=== PATIENT | male | born 1975 | race African-American/Black ===

== ENCOUNTER 2016-05-23 19:22 | Emergency (ER) | payer OTHER ==
[~2016-05-23] VITALS: Ht 177.8 cm; Wt 72.6 kg
[~2016-05-23 19:22] MED LIST: PROZAC10 MG ORAL; UNOBMED; ZYPREXA2.5 MG ORAL
[2016-05-23 19:50] VITALS: BP 123/88
[2016-05-23 20:29] VITALS: BP 127/80
[2016-05-23 20:58] LABS: BASOPHILS % (AUTO) 0.9 % (0.0-2.0); EOSINOPHILS % (AUTO) 1.4 % (0.0-3.0); LYMPHOCYTES % (AUTO) 16.6 % (20.0-45.0); MEAN CORPUSCULAR HEMOGLOBIN 30.3 PG (27.0-31.0); MEAN CORPUSCULAR HGB CONC 32.8 G/DL (32.0-36.0); MEAN CORPUSCULAR VOLUME 92 FL (80-99); MEAN PLATELET VOLUME 7.9 FL (6.5-10.1); MONOCYTES % (AUTO) 7.6 % (1.0-10.0); NEUTROPHILS % (AUTO) 73.5 % (45.0-75.0); PLATELET COUNT 258 K/UL (150-450); RED BLOOD COUNT 5.56 M/UL (4.70-6.10); RED CELL DISTRIBUTION WIDTH 11.8 % (11.6-14.8); WHITE BLOOD COUNT 13.5 K/UL (4.8-10.8)
[2016-05-23 21:27] LABS: ACETAMINOPHEN < 10 ug/mL (10-30); ALANINE AMINOTRANSFERASE 10 U/L (3-41); ALBUMIN/GLOBULIN RATIO 1.2 (1.0-2.7); ALCOHOL < 10 mg/dL; ANION GAP 14 (5-15); ASPARTATE AMINO TRANSFERASE 15 U/L (5-40); CALCIUM 9.9 mg/dL (8.6-10.2); CARBON DIOXIDE 30 mEQ/L (20-30); CHLORIDE 95 mEQ/L (98-107); GLOMERULAR FILTRATION RATE > 60 mL/min (>60); HEMOLYSIS 5; POTASSIUM 4.2 mEQ/L (3.4-4.9); SODIUM 139 mEQ/L (135-145)
--- NOTE | 2016-05-23 21:36 | Emergency Room Report ---
History of Present Illness General Chief Complaint: Behavioral Complaint Source: Patient Present Illness HPI 40-year-old male presents emergency department complaining of hearing voices that are telling him to kill himself by taking a bunch of pills. Patient denies taking pills other than his prescribed medications as directed. Patient states he has a history of schizophrenia. takes Zyprexa and Prozac daily for management of symptoms. Patient states he sees a psychiatrist monthly for medication management. Patient states the last time he saw his doctor was one month ago and is due to see his doctor soon. Patient denies recent illness, nausea, vomiting, fevers or chills denies homicidal ideations. Pt denies intent to follow through with directions from "the voices." He does report increasing anxiousness and irritability in the bilateral lower extremities denies pain. Denies recent fall or trauma. Denies CP, Palpitations, LOC, AMS, dizziness, Changes in Vision, Sensation, paresthesias, or a sudden severe headache. Allergies: Coded Allergies: No Known Allergies (Unverified , 03/05/16) Patient History Past Medical History: see triage record, psych hx Past Surgical History: none Pertinent Family History: none Immunizations: UTD Reviewed Nursing Documentation: PMH: Agreed, PSxH: Agreed Nursing Documentation-PMH Past Medical History: No History, Except For History Of Psychiatric Problem: Yes - Schizo affect disorder, panic attack Review of Systems All Other Systems: negative except mentioned in HPI Physical Exam Vital Signs Date Time Temp Pulse Resp B/P Pulse Ox O2 Delivery O2 Flow Rate FiO2 05/23/16 19:37 98.4 105 14 123/88 100 Room Air Sp02 EP Interpretation: reviewed, abnormal - mild tachycardia at 105 BPM General Appearance: no apparent distress, alert, GCS 15, non-toxic Head: normocephalic, atraumatic Eyes: bilateral eye PERRL, bilateral eye normal inspection ENT: hearing grossly normal, normal pharynx, no angioedema, normal voice Neck: full range of motion, supple/symm/no masses Respiratory: chest non-tender, lungs clear, normal breath sounds, speaking full sentences Cardiovascular #1: regular rate, rhythm, no edema Musculoskeletal: back normal, gait/station normal, normal range of motion, non- tender, no calf tenderness, other - Pt. is NVI to LE's Neurologic: alert, oriented x3, responsive, motor strength/tone normal, sensory intact, cerebellar normal, normal gait, speech normal Psychiatric: judgement/insight normal, memory normal, mood/affect normal, no suicidal/homicidal ideation, other - Pt has auditory hallucinations. and appears with restless affect. Skin: normal color, no rash, warm/dry, well hydrated Lymphatic: no adenopathy Medical Decision Making PA Attestation Dr. Cain is my supervising Physician whom patient management has been discussed with. Diagnostic Impression: Primary Impression: Auditory hallucinations ER Course Pt. presents to the ED c/o during voices that are telling him to kill himself by taking a bunch of pills. Patient denies taking medications other than what he is prescribed and as directed. Patient reports history of schizophrenia. pt. takes Zyprexa and Prozac. Pt is hyperactive, and has a very anxious and restless affect. Ddx considered but are not limited to OD, SI/HI, psychosis, UTI, intoxication Vital signs: are WNL, pt. is afebrile H&PE are most consistent with behavioral/mental health issue, hx of schizophrenia with auditory hallucinations. ORDERS: -CBC: WNL /unremarkable -CMP: WNL /unremarkable -UA: negative for infection see results attached. -UDS: Negative -Psych panel ordered: see results attached - no acute intoxication. ED INTERVENTIONS: None required at this time. -- The patient does not have acute intoxication and denies intent to follow- through with directions from his auditory hallucinations. Discussed with patient that he would need to have medication adjustment and he to see a psychiatrist. Discussed with patient to follow up with [facility] mental health urgent care and gave him informational flyer along with address. Patient understands and verbally agrees to this treatment plan and states that he will go directly there upon discharge. Again patient denies SI at this time, and wants to be evaluated for his auditory hallucinations. Denies having a plan. DISCHARGE: At this time pt. is stable for d/c to home. Will provide printed patient care instructions, and any necessary prescriptions. Care plan and follow up instructions have been discussed with the patient prior to discharge. Labs Test 05/23/16 20:20 05/23/16 20:40 Urine Opiates Screen Negative (NEGATIVE) Urine Barbiturates Screen Negative (NEGATIVE) Phencyclidine (PCP) Screen Negative (NEGATIVE) Urine Amphetamines Screen Negative (NEGATIVE) Urine Benzodiazepines Screen Negative (NEGATIVE) Urine Cocaine Screen Negative (NEGATIVE) Urine Marijuana (THC) Screen Negative (NEGATIVE) White Blood Count 13.5 K/UL (4.8-10.8) Red Blood Count 5.56 M/UL (4.70-6.10) Hemoglobin 16.8 G/DL (14.2-18.0) Hematocrit 51.4 % (42.0-52.0) Mean Corpuscular Volume 92 FL (80-99) Mean Corpuscular Hemoglobin 30.3 PG (27.0-31.0) Mean Corpuscular Hemoglobin Concent 32.8 G/DL (32.0-36.0) Red Cell Distribution Width 11.8 % (11.6-14.8) Platelet Count 258 K/UL (150-450) Mean Platelet Volume 7.9 FL (6.5-10.1) Neutrophils (%) (Auto) 73.5 % (45.0-75.0) Lymphocytes (%) (Auto) 16.6 % (20.0-45.0) Monocytes (%) (Auto) 7.6 % (1.0-10.0) Eosinophils (%) (Auto) 1.4 % (0.0-3.0) Basophils (%) (Auto) 0.9 % (0.0-2.0) Sodium Level 139 mEQ/L (135-145) Potassium Level 4.2 mEQ/L (3.4-4.9) Chloride Level 95 mEQ/L (98-107) Carbon Dioxide Level 30 mEQ/L (20-30) Anion Gap 14 (5-15) Blood Urea Nitrogen 10 mg/dL (7-23) Creatinine 1.0 mg/dL (0.7-1.2) Estimat Glomerular Filtration Rate > 60 mL/min (>60) Glucose Level 117 mg/dL (74-106) Calcium Level 9.9 mg/dL (8.6-10.2) Total Bilirubin 0.2 mg/dL (0.0-1.2) Aspartate Amino Transf (AST/SGOT) 15 U/L (5-40) Alanine Aminotransferase (ALT/SGPT) 10 U/L (3-41) Alkaline Phosphatase 92 U/L (40-129) Total Protein 8.0 g/dL (6.6-8.7) Albumin 4.4 g/dL (3.5-5.2) Globulin 3.6 g/dL Albumin/Globulin Ratio 1.2 (1.0-2.7) Salicylates Level < 1 mg/dL (10-30) Acetaminophen Level < 10 ug/mL (10-30) Serum Alcohol < 10 mg/dL Last Vital Signs Date Time Temp Pulse Resp B/P Pulse Ox O2 Delivery O2 Flow Rate FiO2 05/23/16 19:37 98.4 105 14 123/88 100 Room Air Disposition: HOME, SELF-CARE Condition: Stable Signed Out To: Dr. Carranza Referrals: [facility],REFERRING (PCP) Patient Instructions: Schizophrenia Additional Instructions: Take previously prescribed medications as directed. Follow up at [facility] within 24 hours. Return sooner to ED if new symptoms occur, or current symptoms become worse. Mónica Pearce May 23, 2016 21:36
[2016-05-23 22:03] VITALS: BP 128/74
[2016-05-23 22:57] VITALS: BP 128/74
== END 2016-05-23 22:57 | disposition home or self-care (01) ==
LOC: EMR 20:20
DX: R44.0 Auditory hallucinations (principal); F20.9 Schizophrenia, unspecified; F41.0 Panic disorder [episodic paroxysmal anxiety]
CPT/HCPCS: 36415; 80053; 80300; 80329; 85025; 99282

== ENCOUNTER 2016-07-05 14:18 | Emergency (ER) | payer OTHER ==
[~2016-07-05] VITALS: Ht 177.8 cm; Wt 72.6 kg
[2016-07-05 14:50] VITALS: BP 124/73
[2016-07-05 15:42] LABS: BASOPHILS % (AUTO) 0.8 % (0.0-2.0); EOSINOPHILS % (AUTO) 0.3 % (0.0-3.0); LYMPHOCYTES % (AUTO) 13.5 % (20.0-45.0); MEAN CORPUSCULAR HEMOGLOBIN 29.7 PG (27.0-31.0); MEAN CORPUSCULAR HGB CONC 33.1 G/DL (32.0-36.0); MEAN CORPUSCULAR VOLUME 90 FL (80-99); MEAN PLATELET VOLUME 8.7 FL (6.5-10.1); MONOCYTES % (AUTO) 6.8 % (1.0-10.0); NEUTROPHILS % (AUTO) 78.5 % (45.0-75.0); PLATELET COUNT 207 K/UL (150-450); WHITE BLOOD COUNT 11.7 K/UL (4.8-10.8)
[2016-07-05 15:55] LABS: ACETAMINOPHEN < 10 ug/mL (10-30); ALANINE AMINOTRANSFERASE 9 U/L (3-41); ALBUMIN/GLOBULIN RATIO 1.4 (1.0-2.7); ALCOHOL < 10 mg/dL; ANION GAP 14 (5-15); ASPARTATE AMINO TRANSFERASE 15 U/L (5-40); CALCIUM 9.7 mg/dL (8.6-10.2); CARBON DIOXIDE 27 mEQ/L (20-30); CHLORIDE 99 mEQ/L (98-107); CREATININE 1.1 mg/dL (0.7-1.2); GLOMERULAR FILTRATION RATE > 60 mL/min (>60); HEMOLYSIS 8; POTASSIUM 4.2 mEQ/L (3.4-4.9); SODIUM 140 mEQ/L (135-145); TOTAL PROTEIN 7.6 g/dL (6.6-8.7)
[2016-07-05 18:26] VITALS: BP 118/69
--- NOTE | 2016-07-05 19:36 | Emergency Room Report ---
History of Present Illness General Chief Complaint: Behavioral Complaint Source: Patient (GISELLE ZIMMER) Present Illness HPI The patient is a 40-year-old male with history of schizophrenia presenting for suicidal ideation. The patient states that he wants to hurt himself by overdosing on pills because he is tired of everything. The patient has not acted upon this. The patient denies wanting to hurt others. The patient states that he has had similar thoughts in the past but has not acted upon anything. The patient denies any pain and denies any other symptoms including nausea, vomiting, fever, chills, chest pain, shortness of breath, abdominal pain, dizziness, headache, blurred vision. The patient states that he has not seen a psychiatrist in over a year. The patient states he used to take psychiatric pain indications which he does not remember (GISELLE ZIMMER) Allergies: Coded Allergies: No Known Allergies (Unverified , 03/05/16) Patient History Past Medical History: see triage record Pertinent Family History: none Reviewed Nursing Documentation: PMH: Agreed, PSxH: Agreed (GISELLE ZIMMER) Nursing Documentation-PMH Past Medical History: No History, Except For History Of Psychiatric Problem: Yes - schizoaffective disorder (GISELLE ZIMMER) Review of Systems All Other Systems: negative except mentioned in HPI (GISELLE ZIMMER) Physical Exam Vital Signs Date Time Temp Pulse Resp B/P Pulse Ox O2 Delivery O2 Flow Rate FiO2 07/05/16 14:40 98.1 91 20 124/73 97 Room Air Sp02 EP Interpretation: reviewed, normal General Appearance: no apparent distress, alert, GCS 15, non-toxic Head: normocephalic, atraumatic Eyes: bilateral eye PERRL, bilateral eye normal inspection ENT: hearing grossly normal, normal pharynx, no angioedema, normal voice Neck: full range of motion, supple/symm/no masses Respiratory: chest non-tender, lungs clear, normal breath sounds, no wheezing, speaking full sentences Cardiovascular #1: regular rate, rhythm, no edema Gastrointestinal: normal bowel sounds, non tender, soft, non-distended, no guarding, no rebound Genitourinary: normal inspection, no CVA tenderness Musculoskeletal: back normal, gait/station normal, normal range of motion, non- tender Neurologic: alert, oriented x3, responsive, motor strength/tone normal, sensory intact, speech normal Psychiatric: memory normal, no delusions, depressed affect Suicide Risk Assessment: Suicidal Ideation: Yes Had intent to initiate attempt: No Pt's plan for suicide attempt: Yes Has means to complete attempt: Yes Skin: normal color, no rash, warm/dry, well hydrated Lymphatic: no adenopathy (GISELLE ZIMMER) Medical Decision Making PA Attestation Dr. Cain is my supervising physician. Patient management was discussed with my supervising physician (GISELLE ZIMMER) Diagnostic Impression: Primary Impression: Psychosis Additional Impression: Suicidal ideation ER Course The patient is a 40-year-old male with history of schizophrenia presenting for suicidal ideation Differential diagnoses considered but not limited to suicidal ideation, homicidal ideation, depression PE: No apparent distress. A&Ox4 PERRL. EOMI. Normal mentation. RRR. No MRG Lungs CTA bilat Abdomen: Normal appearance. Non distended. No ecchymosis. Normal BS. Non TTP. No McBurney point tenderness. No guarding. Skin is warm and dry, no rashes. Labs: CBC: mild leukocytosis. Otherwise unremarkable. CMP: unremarkable. Negative blood alcohol. UDS: negative Pt is medically cleared and will be transferred to [facility] for [facility] care. Laboratory Tests Test 07/05/16 15:00 07/05/16 15:15 Urine Opiates Screen Negative (NEGATIVE) Urine Barbiturates Screen Negative (NEGATIVE) Phencyclidine (PCP) Screen Negative (NEGATIVE) Urine Amphetamines Screen Negative (NEGATIVE) Urine Benzodiazepines Screen Negative (NEGATIVE) Urine Cocaine Screen Negative (NEGATIVE) Urine Marijuana (THC) Screen Negative (NEGATIVE) White Blood Count 11.7 K/UL (4.8-10.8) H Red Blood Count 5.30 M/UL (4.70-6.10) Hemoglobin 15.8 G/DL (14.2-18.0) Hematocrit 47.7 % (42.0-52.0) Mean Corpuscular Volume 90 FL (80-99) Mean Corpuscular Hemoglobin 29.7 PG (27.0-31.0) Mean Corpuscular Hemoglobin Concent 33.1 G/DL (32.0-36.0) Red Cell Distribution Width 12.0 % (11.6-14.8) Platelet Count 207 K/UL (150-450) Mean Platelet Volume 8.7 FL (6.5-10.1) Neutrophils (%) (Auto) 78.5 % (45.0-75.0) H Lymphocytes (%) (Auto) 13.5 % (20.0-45.0) L Monocytes (%) (Auto) 6.8 % (1.0-10.0) Eosinophils (%) (Auto) 0.3 % (0.0-3.0) Basophils (%) (Auto) 0.8 % (0.0-2.0) Sodium Level 140 mEQ/L (135-145) Potassium Level 4.2 mEQ/L (3.4-4.9) Chloride Level 99 mEQ/L (98-107) Carbon Dioxide Level 27 mEQ/L (20-30) Anion Gap 14 (5-15) Blood Urea Nitrogen 4 mg/dL (7-23) L Creatinine 1.1 mg/dL (0.7-1.2) Estimate Glomerular Filtration Rate > 60 mL/min (>60) Glucose Level 103 mg/dL (74-106) Calcium Level 9.7 mg/dL (8.6-10.2) Total Bilirubin 0.5 mg/dL (0.0-1.2) Aspartate Amino Transferase (AST) 15 U/L (5-40) Alanine Aminotransferase (ALT) 9 U/L (3-41) Alkaline Phosphatase 70 U/L (40-129) Total Protein 7.6 g/dL (6.6-8.7) Albumin 4.5 g/dL (3.5-5.2) Globulin 3.1 g/dL Albumin/Globulin Ratio 1.4 (1.0-2.7) Salicylates Level < 1 mg/dL (10-30) L Acetaminophen Level < 10 ug/mL (10-30) L Serum Alcohol < 10 mg/dL Lab Results Impression CBC: mild leukocytosis. Otherwise unremarkable. CMP: unremarkable. Negative blood alcohol. UDS: negative (GISELLE ZIMMER) ER Course Patient examined by me. I agree with above assessment and plan. (Edy Cain M.D.) Chest X-Ray Diagnostic Results EP Interpretation: Yes Findings: no consolidation, no effusion, no pneumothorax Number of Views: 1 PA Scribe Text I am acting as scribe for my supervising physician. My supervising physician's interpretation of the chest xrays are there is no consolidation, no effusion, no acute cardiopulmonary disease, no pneumothorax (GISELLE ZIMMER) Last Vital Signs Date Time Temp Pulse Resp B/P Pulse Ox O2 Delivery O2 Flow Rate FiO2 07/05/16 18:26 86 20 118/69 99 Room Air 07/05/16 14:40 98.1 Status: improved (GISELLE ZIMMER) Disposition: XFER TO PSYCH HOSP/UNIT Condition: Stable Referrals: [facility],REFERRING (PCP) GISELLE ZIMMER Jul 05, 2016 19:36 Edy Cain M.D. Jul 11, 2016 02:09
[2016-07-05 22:30] VITALS: BP 113/71
[2016-07-06 00:26] VITALS: BP 123/80
[2016-07-06 02:58] VITALS: BP_SYST 123; BP_SYST 125; BP_DIAS 80; BP_DIAS 82
--- NOTE | 2016-07-06 11:53 | Diagnostic Imaging Report ---
Indication: Chest pain Technique: Single portable AP view of the chest. Findings: Comparison: None. The bones and extra pulmonary soft tissues, cardiomediastinal silhouette, pulmonary vasculature and parenchyma, and pleural surfaces are unremarkable. IMPRESSION: Negative portable AP chest.
== END 2016-07-06 03:03 ==
LOC: EMR 15:07
DX: R45.851 Suicidal ideations (principal); F29 Unspecified psychosis not due to a substance or known physiological condition; F25.9 Schizoaffective disorder, unspecified
CPT/HCPCS: 36415; 71010; 80053; 80300; 80329; 85025; 99285

== ENCOUNTER 2016-07-25 19:17 | Emergency (ER) | payer OTHER ==
[~2016-07-25] VITALS: Ht 177.8 cm; Wt 72.6 kg
[2016-07-25 20:41] LABS: BASOPHILS % (AUTO) 1.2 % (0.0-2.0); EOSINOPHILS % (AUTO) 2.9 % (0.0-3.0); LYMPHOCYTES % (AUTO) 20.2 % (20.0-45.0); MEAN CORPUSCULAR HEMOGLOBIN 30.2 PG (27.0-31.0); MEAN CORPUSCULAR HGB CONC 32.9 G/DL (32.0-36.0); MEAN CORPUSCULAR VOLUME 92 FL (80-99); MONOCYTES % (AUTO) 5.8 % (1.0-10.0); NEUTROPHILS % (AUTO) 69.9 % (45.0-75.0); PLATELET COUNT 193 K/UL (150-450); RED BLOOD COUNT 5.14 M/UL (4.70-6.10); RED CELL DISTRIBUTION WIDTH 12.9 % (11.6-14.8)
[2016-07-25 20:57] VITALS: BP 117/79
[2016-07-25 21:03] LABS: ACETAMINOPHEN < 10 ug/mL (10-30); ALANINE AMINOTRANSFERASE 9 U/L (3-41); ALBUMIN/GLOBULIN RATIO 1.6 (1.0-2.7); ALCOHOL < 10 mg/dL; ANION GAP 15 (5-15); ASPARTATE AMINO TRANSFERASE 13 U/L (5-40); CARBON DIOXIDE 28 mEQ/L (20-30); CHLORIDE 99 mEQ/L (98-107); GLOMERULAR FILTRATION RATE > 60 mL/min (>60); HEMOLYSIS 9; POTASSIUM 3.9 mEQ/L (3.4-4.9); SODIUM 142 mEQ/L (135-145); TOTAL PROTEIN 7.4 g/dL (6.6-8.7)
--- NOTE | 2016-07-25 21:18 | Emergency Room Report ---
History of Present Illness General Chief Complaint: Behavioral Complaint Source: Patient (GISELLE ZIMMER) Present Illness HPI The patient is a 40-year-old male with a history of schizophrenia and major depression presenting for auditory hallucinations. The patient states that he was recently discharged from a psychiatric facility and has been hearing voices which are telling him to hurt himself. Patient states he does not want to hurt himself and has not made any attempt to do so. The patient was seen in this emergency department within the past month for the same complaint and was sent to a psychiatric facility for further care. The patient denies any other symptoms including nausea, vomiting, fever, chills, headaches, dizziness, blurred vision, chest pain, shortness of breath (GISELLE ZIMMER) Allergies: Coded Allergies: No Known Allergies (Unverified , 03/05/16) Patient History Past Medical History: see triage record Pertinent Family History: none Reviewed Nursing Documentation: PMH: Agreed, PSxH: Agreed (GISELLE ZIMMER) Review of Systems All Other Systems: negative except mentioned in HPI (GISELLE ZIMMER) Physical Exam Vital Signs Date Time Temp Pulse Resp B/P Pulse Ox O2 Delivery O2 Flow Rate FiO2 07/25/16 19:22 98.1 94 17 120/82 99 Room Air Sp02 EP Interpretation: reviewed, normal General Appearance: no apparent distress, alert, GCS 15, non-toxic Head: normocephalic, atraumatic Eyes: bilateral eye PERRL, bilateral eye normal inspection ENT: hearing grossly normal, normal pharynx, no angioedema, normal voice Neck: full range of motion, supple/symm/no masses Respiratory: chest non-tender, lungs clear, normal breath sounds, no wheezing, speaking full sentences Cardiovascular #1: regular rate, rhythm, no edema Musculoskeletal: back normal, gait/station normal, normal range of motion, non- tender Neurologic: alert, oriented x3, responsive, motor strength/tone normal, sensory intact, speech normal Psychiatric: judgement/insight normal, memory normal, mood/affect normal, no suicidal/homicidal ideation Suicide Risk Assessment: Suicidal Ideation: No Had intent to initiate attempt: No Pt's plan for suicide attempt: No Has means to complete attempt: No Skin: normal color, no rash, warm/dry, well hydrated Lymphatic: no adenopathy (GISELLE ZIMMER) Medical Decision Making PA Attestation Dr. Dobbs is my supervising physician. Patient management was discussed with my supervising physician (GISELLE ZIMMER) Medicare Attestation At this time the patient was also seen and evaluated by myself Patient has some reports that he feels significantly better does not have any auditory or visual hallucinations He reports that he lives at a boarding care facility and he would like to return there He states that a psychiatrist comes and sees them and he feels comfortable seeing a psychiatrist at the facility (ART DOBBS D.O.) Diagnostic Impression: Primary Impression: Bipolar disorder ER Course The patient is a 40-year-old male with a history of schizophrenia and major depression presenting for auditory hallucinations Differential diagnoses considered but not limited to suicidal ideation, homicidal ideation, depression, psychosis PE: No apparent distress. A&Ox4 PERRL. EOMI. Normal mentation. RRR. No MRG Lungs CTA bilat Abdomen: Normal appearance. Non distended. No ecchymosis. Normal BS. Non TTP. No McBurney point tenderness. No guarding. Skin is warm and dry, no rashes. Lab work unremarkable. The pt has now chosen to leave and return to his board and care facility. The pt continues to deny SI, self harm, or HI. The pt is given information regarding psychiatric care and will go to the [facility] facility as discussed. ER precautions given. Laboratory Tests Test 07/25/16 20:30 White Blood Count 10.0 K/UL (4.8-10.8) Red Blood Count 5.14 M/UL (4.70-6.10) Hemoglobin 15.5 G/DL (14.2-18.0) Hematocrit 47.2 % (42.0-52.0) Mean Corpuscular Volume 92 FL (80-99) Mean Corpuscular Hemoglobin 30.2 PG (27.0-31.0) Mean Corpuscular Hemoglobin Concent 32.9 G/DL (32.0-36.0) Red Cell Distribution Width 12.9 % (11.6-14.8) Platelet Count 193 K/UL (150-450) Mean Platelet Volume 8.0 FL (6.5-10.1) Neutrophils (%) (Auto) 69.9 % (45.0-75.0) Lymphocytes (%) (Auto) 20.2 % (20.0-45.0) Monocytes (%) (Auto) 5.8 % (1.0-10.0) Eosinophils (%) (Auto) 2.9 % (0.0-3.0) Basophils (%) (Auto) 1.2 % (0.0-2.0) Sodium Level 142 mEQ/L (135-145) Potassium Level 3.9 mEQ/L (3.4-4.9) Chloride Level 99 mEQ/L (98-107) Carbon Dioxide Level 28 mEQ/L (20-30) Anion Gap 15 (5-15) Blood Urea Nitrogen 12 mg/dL (7-23) Creatinine 1.0 mg/dL (0.7-1.2) Estimate Glomerular Filtration Rate > 60 mL/min (>60) Glucose Level 99 mg/dL (74-106) Calcium Level 10.0 mg/dL (8.6-10.2) Total Bilirubin 0.2 mg/dL (0.0-1.2) Aspartate Amino Transferase (AST) 13 U/L (5-40) Alanine Aminotransferase (ALT) 9 U/L (3-41) Alkaline Phosphatase 74 U/L (40-129) Total Protein 7.4 g/dL (6.6-8.7) Albumin 4.6 g/dL (3.5-5.2) Globulin 2.8 g/dL Albumin/Globulin Ratio 1.6 (1.0-2.7) Salicylates Level < 1 mg/dL (10-30) L Acetaminophen Level < 10 ug/mL (10-30) L Serum Alcohol < 10 mg/dL Lab Results Impression CBC, CMP unremarkable. negative blood alcohol (GISELLE ZIMMER P.A.) Last Vital Signs Date Time Temp Pulse Resp B/P Pulse Ox O2 Delivery O2 Flow Rate FiO2 07/25/16 20:57 98.2 91 15 117/79 98 Room Air Status: improved (GISELLE ZIMMER P.A.) Disposition: ASSISTED LIVING Condition: Unknown Referrals: [facility],REFERRING (PCP) GISELLE ZIMMER Jul 25, 2016 21:18 ART DOBBS D.O. Jul 25, 2016 21:40
[2016-07-25 23:00] VITALS: BP_SYST 117; BP_SYST 121; BP_DIAS 79; BP_DIAS 82
== END 2016-07-25 23:00 | disposition home or self-care (01) ==
LOC: EMR 20:16
DX: F31.9 Bipolar disorder, unspecified (principal); F20.9 Schizophrenia, unspecified; F32.9 Major depressive disorder, single episode, unspecified; R44.0 Auditory hallucinations
CPT/HCPCS: 36415; 80053; 80329; 85025; 99282

== ENCOUNTER 2016-08-31 21:56 | Emergency (ER) | payer OTHER ==
[~2016-08-31] VITALS: Ht 177.8 cm; Wt 74.8 kg
[2016-08-31 22:20] VITALS: BP 120/80
[2016-09-01] VITALS (7 sets, daily range): BP systolic 117–123; BP diastolic 70–80
[2016-09-01 00:39] LABS: BASOPHILS % (AUTO) 1.5 % (0.0-2.0); EOSINOPHILS % (AUTO) 3.2 % (0.0-3.0); LYMPHOCYTES % (AUTO) 19.7 % (20.0-45.0); MEAN CORPUSCULAR HEMOGLOBIN 32.2 PG (27.0-31.0); MEAN CORPUSCULAR HGB CONC 34.6 G/DL (32.0-36.0); MEAN CORPUSCULAR VOLUME 93 FL (80-99); MEAN PLATELET VOLUME 8.2 FL (6.5-10.1); MONOCYTES % (AUTO) 7.8 % (1.0-10.0); NEUTROPHILS % (AUTO) 67.8 % (45.0-75.0); PLATELET COUNT 174 K/UL (150-450); RED BLOOD COUNT 5.42 M/UL (4.70-6.10); RED CELL DISTRIBUTION WIDTH 12.7 % (11.6-14.8)
[2016-09-01 01:07] LABS: ACETAMINOPHEN < 10 ug/mL (10-30); ALANINE AMINOTRANSFERASE 12 U/L (3-41); ALBUMIN/GLOBULIN RATIO 1.3 (1.0-2.7); ALCOHOL < 10 mg/dL; ANION GAP 16 (5-15); ASPARTATE AMINO TRANSFERASE 17 U/L (5-40); CALCIUM 9.8 mg/dL (8.6-10.2); CARBON DIOXIDE 27 mEQ/L (20-30); CHLORIDE 98 mEQ/L (98-107); CREATININE 1.1 mg/dL (0.7-1.2); GLOMERULAR FILTRATION RATE > 60 mL/min (>60); HEMOLYSIS 18; POTASSIUM 4.1 mEQ/L (3.4-4.9); SODIUM 141 mEQ/L (135-145); TOTAL PROTEIN 7.7 g/dL (6.6-8.7)
--- NOTE | 2016-09-01 05:39 | Emergency Room Report ---
History of Present Illness General Chief Complaint: Behavioral Complaint Source: Patient (ART DOBBS D.O.) Present Illness HPI Patient presents with complaints of auditory hallucinations Patient has history of schizophrenia and depression Denies any active suicidal thoughts at this time However does feel paranoid Denies any chest pressures of breath denies any back or flank pain Denies any fevers or chills (ART DOBBS D.O.) Allergies: Coded Allergies: No Known Allergies (Unverified , 03/05/16) Patient History Past Medical History: see triage record Pertinent Family History: none Reviewed Nursing Documentation: PMH: Agreed, PSxH: Agreed (ART DOBBS D.O.) Review of Systems All Other Systems: negative except mentioned in HPI (ART DOBBS D.O.) Physical Exam Vital Signs Date Time Temp Pulse Resp B/P Pulse Ox O2 Delivery O2 Flow Rate FiO2 08/31/16 22:15 97.9 99 16 123/81 96 Room Air Sp02 EP Interpretation: reviewed, normal General Appearance: well appearing, no apparent distress Head: normocephalic, atraumatic Eyes: bilateral eye EOMI, bilateral eye PERRL ENT: hearing grossly normal, normal pharynx, TMs + canals normal, uvula midline Neck: full range of motion, supple, no meningismus, no bony tend Respiratory: lungs clear, normal breath sounds, no rhonchi, no respiratory distress, no retraction, no accessory muscle use Cardiovascular #1: normal peripheral pulses, regular rate, rhythm, no edema, no gallop, no JVD, no murmur Gastrointestinal: normal bowel sounds, non tender, soft, no mass, no organomegaly, non-distended, no guarding, no hernia, no pulsatile mass, no rebound Genitourinary: no CVA tenderness Musculoskeletal: normal inspection Neurologic: oriented x3, responsive, wheel press operator III-XII nml as tested, motor strength/ tone normal, sensory intact Psychiatric: other - Auditory hallucinations, however no obvious suicidal thought Skin: normal color, no rash, warm/dry, palpation normal Lymphatic: normal inspection, no adenopathy (ART DOBBS.Best) Medical Decision Making Diagnostic Impression: Primary Impression: Bipolar disorder Qualified Codes: F31.9 - Bipolar disorder, unspecified Additional Impression: Behavioral disorder ER Course Patient's blood work was obtained for further medical clearance At this time patient is voluntarily requesting psychiatric facility Labs Test 09/01/16 00:15 White Blood Count 10.0 K/UL (4.8-10.8) Red Blood Count 5.42 M/UL (4.70-6.10) Hemoglobin 17.4 G/DL (14.2-18.0) Hematocrit 50.4 % (42.0-52.0) Mean Corpuscular Volume 93 FL (80-99) Mean Corpuscular Hemoglobin 32.2 PG (27.0-31.0) Mean Corpuscular Hemoglobin Concent 34.6 G/DL (32.0-36.0) Red Cell Distribution Width 12.7 % (11.6-14.8) Platelet Count 174 K/UL (150-450) Mean Platelet Volume 8.2 FL (6.5-10.1) Neutrophils (%) (Auto) 67.8 % (45.0-75.0) Lymphocytes (%) (Auto) 19.7 % (20.0-45.0) Monocytes (%) (Auto) 7.8 % (1.0-10.0) Eosinophils (%) (Auto) 3.2 % (0.0-3.0) Basophils (%) (Auto) 1.5 % (0.0-2.0) Sodium Level 141 mEQ/L (135-145) Potassium Level 4.1 mEQ/L (3.4-4.9) Chloride Level 98 mEQ/L (98-107) Carbon Dioxide Level 27 mEQ/L (20-30) Anion Gap 16 (5-15) Blood Urea Nitrogen 6 mg/dL (7-23) Creatinine 1.1 mg/dL (0.7-1.2) Estimat Glomerular Filtration Rate > 60 mL/min (>60) Glucose Level 108 mg/dL (74-106) Calcium Level 9.8 mg/dL (8.6-10.2) Total Bilirubin 0.3 mg/dL (0.0-1.2) Aspartate Amino Transf (AST/SGOT) 17 U/L (5-40) Alanine Aminotransferase (ALT/SGPT) 12 U/L (3-41) Alkaline Phosphatase 85 U/L (40-129) Total Protein 7.7 g/dL (6.6-8.7) Albumin 4.4 g/dL (3.5-5.2) Globulin 3.3 g/dL Albumin/Globulin Ratio 1.3 (1.0-2.7) Salicylates Level < 1 mg/dL (10-30) Urine Opiates Screen Negative (NEGATIVE) Acetaminophen Level < 10 ug/mL (10-30) Urine Barbiturates Screen Negative (NEGATIVE) Phencyclidine (PCP) Screen Negative (NEGATIVE) Urine Amphetamines Screen Negative (NEGATIVE) Urine Benzodiazepines Screen Negative (NEGATIVE) Urine Cocaine Screen Negative (NEGATIVE) Urine Marijuana (THC) Screen Negative (NEGATIVE) Serum Alcohol < 10 mg/dL (ART DOBBS D.O.) ER Course Received signout from Dr Dobbs at 630am Patient remains calm, stable in stretcher Reviewed labs. Negative Utox, ETOH Phone Cx placed with Dr Bojorquez at 9am Advised 1mg Risperdal which was given She will see patient later today (WENDY DELCID M.D.) ER Course Please see the note from Dr. Delcid. The patient was evaluated by the psychiatrist. She recommends increasing the Prozac to 60 and given the patient's Klonopin. She feels the patient is not a danger to himself and is stable for discharge and outpatient observation and treatment. (Edy Cain M.D.) Last Vital Signs Date Time Temp Pulse Resp B/P Pulse Ox O2 Delivery O2 Flow Rate FiO2 08/31/16 22:20 97.9 68 15 120/80 99 Room Air Status: improved (ART DOBBS D.O.) Status: improved (WENDY DELCID M.D.) Last Vital Signs Date Time Temp Pulse Resp B/P Pulse Ox O2 Delivery O2 Flow Rate FiO2 09/01/16 18:05 98.0 70 18 118/70 99 Room Air Status: improved (Edy Cain M.D.) Disposition: HOME, SELF-CARE Condition: Improved Scripts Clonazepam* (KLONOPIN*) 1 Mg Tablet 1 MG ORAL HS Y for anxiety, #5 TAB 0 Refills Prov: Edy Cain M.D. 09/01/16 Fluoxetine Hcl* (PROZAC*) 20 Mg Capsule 60 MG ORAL DAILY for 7 Days, CAP Prov: Edy Cain M.D. 09/01/16 Referrals: [facility],REFERRING (PCP) ART DOBBS D.O. Sep 01, 2016 05:39 WENDY DELCID M.D. Sep 01, 2016 12:54 Edy Cain M.D. Sep 01, 2016 17:53
[2016-09-01] MEDS ORDERED: PROZAC20 MG ORAL (17:57)
[2016-09-01] MEDS ORDERED: KLONOPIN1 MG ORAL (17:57)
--- NOTE | 2016-09-02 05:48 | Consultation ---
DATE OF CONSULTATION: 09/01/2016 HISTORY OF PRESENT ILLNESS: The patient is a 40-year-old male with a history of schizoaffective disorder, bipolar type, who came to the hospital with a chief complaint of hearing voices. Psychiatry was consulted to assess. During the evaluation, the patient is complaining of panic attack like symptoms including chest tightness, increased anxiety, agitation, and feeling like he wants to . The patient denies any suicidal or homicidal ideation. Also, the patient has been having increased auditory hallucinations. No suicidal or homicidal ideation. No manic symptoms. The patient also has recently seen his psychiatrist, Dr. Cano. He saw the psychiatrist on . The medication was not changed and the patient was told to return this coming and the patient came to the ER as the anxiety symptoms are overwhelming. He denies using any drugs or alcohol. Laboratories were not nonsignificant for any drug. PAST PSYCHIATRIC HISTORY: He stated that he has been hospitalized in a psychiatric hospital. No suicide attempt in the past. He has been treated with Zyprexa 40 mg h.s. and Prozac 40 mg in the morning. No benzodiazepines. SUBSTANCE ABUSE HISTORY: He has a current history of illicit drug use or alcohol. He stated that he used drugs in the past. MENTAL STATUS EXAMINATION: The patient is alert and oriented x3. Mood is anxious. Affect is constricted. Congruent mood. Thought process is concrete. Thought content, there is no suicidal or homicidal ideation. Positive for auditory hallucinations. Insight and judgment is fair. ASSESSMENT: Bartlett I Schizoaffective disorder. Bartlett II Deferred. Bartlett III As above. Bartlett IV Low. Bartlett V Global assessment of functioning is 50. PLAN: 1. We will increase the Prozac to 60 mg q.a.m. 2. We will also prescribe Klonopin 1 mg p.o. q.h.s. We will give 5 pills. 3. He was also instructed to see his psychiatrist next . 4. He was also told to go to the emergency room if he feels there is . Colin Bojorquez M.D. DR: ALIX JOB#: [id number] CC:
== END 2016-09-01 18:06 | disposition home or self-care (01) ==
LOC: EMR 22:31
DX: F31.9 Bipolar disorder, unspecified (principal); F91.9 Conduct disorder, unspecified; R44.0 Auditory hallucinations
CPT/HCPCS: 36415; 80053; 80300; 80329; 85025; 99284

== ENCOUNTER 2016-09-11 22:15 | Emergency (ER) | payer OTHER ==
[~2016-09-11] VITALS: Ht 177.8 cm; Wt 74.8 kg
[~2016-09-11 22:15] MED LIST changes: +KLONOPIN1 MG ORAL; +PROZAC20 MG ORAL
[2016-09-12] MEDS ORDERED: XANAX0.5 MG ORAL (00:58)
[2016-09-12 01:00] VITALS: BP 128/82
[2016-09-12] MEDS ORDERED: ALPRAZolam 0.5mg tab ORAL ONE (01:00)
[2016-09-12 01:11] LABS: BASOPHILS % (AUTO) 0.8 % (0.0-2.0); EOSINOPHILS % (AUTO) 3.5 % (0.0-3.0); MEAN CORPUSCULAR HEMOGLOBIN 30.3 PG (27.0-31.0); MEAN CORPUSCULAR HGB CONC 33.3 G/DL (32.0-36.0); MEAN CORPUSCULAR VOLUME 91 FL (80-99); MEAN PLATELET VOLUME 7.6 FL (6.5-10.1); MONOCYTES % (AUTO) 6.8 % (1.0-10.0); NEUTROPHILS % (AUTO) 64.9 % (45.0-75.0); PLATELET COUNT 210 K/UL (150-450); RED BLOOD COUNT 5.26 M/UL (4.70-6.10); RED CELL DISTRIBUTION WIDTH 12.5 % (11.6-14.8); WHITE BLOOD COUNT 10.2 K/UL (4.8-10.8)
[2016-09-12 01:26] LABS: ACETAMINOPHEN < 10 ug/mL (10-30); ALANINE AMINOTRANSFERASE 11 U/L (3-41); ALBUMIN/GLOBULIN RATIO 1.2 (1.0-2.7); ALCOHOL < 10 mg/dL; ANION GAP 13 (5-15); ASPARTATE AMINO TRANSFERASE 14 U/L (5-40); CALCIUM 9.2 mg/dL (8.6-10.2); CARBON DIOXIDE 27 mEQ/L (20-30); CHLORIDE 103 mEQ/L (98-107); CREATININE 0.9 mg/dL (0.7-1.2); GLOMERULAR FILTRATION RATE > 60 mL/min (>60); HEMOLYSIS 4; POTASSIUM 3.9 mEQ/L (3.4-4.9); SODIUM 143 mEQ/L (135-145); TOTAL PROTEIN 7.2 g/dL (6.6-8.7)
--- NOTE | 2016-09-12 04:16 | Emergency Room Report ---
History of Present Illness General Chief Complaint: General Complaint Source: Patient Present Illness HPI Patient reports that he was having auditory hallucination which made his heart beat and felt palpitations and he presents to the ER Patient has had several presentations the ER recently At this time denies any homicidal or suicidal thoughts Denies any chest pain or shortness of breath patient [facility] will not see him for the next 7 days Patient has spoken to psychiatrist in the last several days Otherwise denies any change in medications And upon arrival and evaluation denies any active auditory hallucinations Allergies: Coded Allergies: No Known Allergies (Unverified , 09/11/16) Patient History Past Medical History: see triage record Pertinent Family History: none Reviewed Nursing Documentation: PMH: Agreed, PSxH: Agreed Nursing Documentation-PMH Past Medical History: No History, Except For Review of Systems All Other Systems: negative except mentioned in HPI Physical Exam Vital Signs Date Time Temp Pulse Resp B/P Pulse Ox O2 Delivery O2 Flow Rate FiO2 09/11/16 22:46 97.9 93 16 128/82 97 Sp02 EP Interpretation: reviewed, normal General Appearance: well appearing, no apparent distress Head: normocephalic, atraumatic Eyes: bilateral eye EOMI, bilateral eye PERRL ENT: hearing grossly normal, normal pharynx, TMs + canals normal, uvula midline Neck: full range of motion, supple, no meningismus, no bony tend Respiratory: lungs clear, normal breath sounds, no rhonchi, no respiratory distress, no retraction, no accessory muscle use Cardiovascular #1: normal peripheral pulses, regular rate, rhythm, no edema, no gallop, no JVD, no murmur Gastrointestinal: normal bowel sounds, non tender, soft, no mass, no organomegaly, non-distended, no guarding, no hernia, no pulsatile mass, no rebound Genitourinary: no CVA tenderness Musculoskeletal: normal inspection Neurologic: oriented x3, responsive, ultrasound coordinator III-XII nml as tested, motor strength/ tone normal, sensory intact Psychiatric: mood/affect normal Skin: normal color, no rash, warm/dry, palpation normal Lymphatic: normal inspection, no adenopathy Medical Decision Making Diagnostic Impression: Primary Impression: palpitations ER Course At this time patient reports that his auditory hallucinations have improved He felt that Xanax would help his palpitation sensation This did help the patient while he was here Patient is requesting to [facility] Otherwise continues to deny any suicidal or homicidal thoughts And will have close outpatient followup Labs Test 09/11/16 23:00 09/12/16 00:40 Urine Opiates Screen Negative (NEGATIVE) Urine Barbiturates Screen Negative (NEGATIVE) Phencyclidine (PCP) Screen Negative (NEGATIVE) Urine Amphetamines Screen Negative (NEGATIVE) Urine Benzodiazepines Screen Negative (NEGATIVE) Urine Cocaine Screen Negative (NEGATIVE) Urine Marijuana (THC) Screen Negative (NEGATIVE) White Blood Count 10.2 K/UL (4.8-10.8) Red Blood Count 5.26 M/UL (4.70-6.10) Hemoglobin 15.9 G/DL (14.2-18.0) Hematocrit 47.9 % (42.0-52.0) Mean Corpuscular Volume 91 FL (80-99) Mean Corpuscular Hemoglobin 30.3 PG (27.0-31.0) Mean Corpuscular Hemoglobin Concent 33.3 G/DL (32.0-36.0) Red Cell Distribution Width 12.5 % (11.6-14.8) Platelet Count 210 K/UL (150-450) Mean Platelet Volume 7.6 FL (6.5-10.1) Neutrophils (%) (Auto) 64.9 % (45.0-75.0) Lymphocytes (%) (Auto) 24.0 % (20.0-45.0) Monocytes (%) (Auto) 6.8 % (1.0-10.0) Eosinophils (%) (Auto) 3.5 % (0.0-3.0) Basophils (%) (Auto) 0.8 % (0.0-2.0) Sodium Level 143 mEQ/L (135-145) Potassium Level 3.9 mEQ/L (3.4-4.9) Chloride Level 103 mEQ/L (98-107) Carbon Dioxide Level 27 mEQ/L (20-30) Anion Gap 13 (5-15) Blood Urea Nitrogen 7 mg/dL (7-23) Creatinine 0.9 mg/dL (0.7-1.2) Estimat Glomerular Filtration Rate > 60 mL/min (>60) Glucose Level 77 mg/dL (74-106) Calcium Level 9.2 mg/dL (8.6-10.2) Total Bilirubin < 0.2 mg/dL (0.0-1.2) Aspartate Amino Transf (AST/SGOT) 14 U/L (5-40) Alanine Aminotransferase (ALT/SGPT) 11 U/L (3-41) Alkaline Phosphatase 73 U/L (40-129) Total Protein 7.2 g/dL (6.6-8.7) Albumin 4.0 g/dL (3.5-5.2) Globulin 3.2 g/dL Albumin/Globulin Ratio 1.2 (1.0-2.7) Salicylates Level < 1 mg/dL (10-30) Acetaminophen Level < 10 ug/mL (10-30) Serum Alcohol < 10 mg/dL Last Vital Signs Date Time Temp Pulse Resp B/P Pulse Ox O2 Delivery O2 Flow Rate FiO2 09/12/16 01:00 97.9 16 128/82 97 09/11/16 22:46 93 Status: improved Disposition: HOME, SELF-CARE Condition: Improved Scripts Alprazolam* (XANAX*) 0.5 Mg Tablet 0.5 MG ORAL QHS, #7 TAB Prov: ART DOBBS D.O. 09/12/16 Referrals: [facility],REFERRING (PCP) Patient Instructions: Palpitations, [id number] Additional Instructions: Patient is provided with the discharge instructions notified to follow up with primary doctor in the next 2-3 days otherwise return to the er with any worsening symptoms. Please note that this report is being documented using DRAGON technology. This can lead to erroneous entry secondary to incorrect interpretation by the dictating instrument. ART DOBBS D.O. September 12, 2016 04:16
== END 2016-09-12 01:00 | disposition home or self-care (01) ==
LOC: EMR 23:20
DX: R00.2 Palpitations (principal); R44.0 Auditory hallucinations
CPT/HCPCS: 36415; 80053; 80300; 80329; 85025; 99283

== ENCOUNTER 2016-11-27 09:26 | Emergency (ER) | payer OTHER ==
[~2016-11-27] VITALS: Ht 177.8 cm; Wt 74.8 kg
[~2016-11-27 09:26] MED LIST changes: +XANAX0.5 MG ORAL
--- NOTE | 2016-11-27 09:46 | Emergency Room Report ---
Physical Exam Vital Signs Date Time Temp Pulse Resp B/P Pulse Ox O2 Delivery O2 Flow Rate FiO2 11/27/16 09:37 98.1 98 16 143/30 100 Room Air Medical Decision Making Last Vital Signs Date Time Temp Pulse Resp B/P Pulse Ox O2 Delivery O2 Flow Rate FiO2 11/27/16 09:37 98.1 98 16 143/30 100 Room Air Jigar Rodriguez MD Nov 27, 2016 09:46
[2016-11-27 10:20] LABS: BASOPHILS % (AUTO) 0.8 % (0.0-2.0); EOSINOPHILS % (AUTO) 1.3 % (0.0-3.0); MEAN CORPUSCULAR HEMOGLOBIN 29.3 PG (27.0-31.0); MEAN CORPUSCULAR HGB CONC 31.7 G/DL (32.0-36.0); MEAN CORPUSCULAR VOLUME 92 FL (80-99); MEAN PLATELET VOLUME 8.3 FL (6.5-10.1); MONOCYTES % (AUTO) 6.2 % (1.0-10.0); NEUTROPHILS % (AUTO) 79.7 % (45.0-75.0); PLATELET COUNT 231 K/UL (150-450); RED BLOOD COUNT 5.29 M/UL (4.70-6.10); RED CELL DISTRIBUTION WIDTH 11.7 % (11.6-14.8); WHITE BLOOD COUNT 12.8 K/UL (4.8-10.8)
[2016-11-27 10:42] LABS: ACETAMINOPHEN < 10 ug/mL (10-30); ALANINE AMINOTRANSFERASE 13 U/L (3-41); ALBUMIN/GLOBULIN RATIO 1.4 (1.0-2.7); ALCOHOL < 10 mg/dL; ANION GAP 13 (5-15); ASPARTATE AMINO TRANSFERASE 15 U/L (5-40); CALCIUM 9.7 mg/dL (8.6-10.2); CARBON DIOXIDE 26 mEQ/L (20-30); CHLORIDE 97 mEQ/L (98-107); GLOMERULAR FILTRATION RATE > 60 mL/min (>60); HEMOLYSIS 6; POTASSIUM 3.6 mEQ/L (3.4-4.9); SODIUM 136 mEQ/L (135-145); TOTAL PROTEIN 7.6 g/dL (6.6-8.7)
--- NOTE | 2016-11-27 10:43 | Emergency Room Report ---
History of Present Illness General Chief Complaint: Suicidal Source: Patient, Medical Record Present Illness HPI And self presents, with complaint of schizophrenia, auditory hallucination. And history of recent homelessness. For some reason he was kicked out of his [id number]. And he is now complaining of possible suicidal ideation with overdose of medications as his choice. He is asking for evaluation in a psychiatric hospital in assistance with housing as well. He's been off medications for a few days, to include Zyprexa. Denies other drugs of abuse or alcohol. No medical complaints no complaints of chest dangerous breath fever chills or infectious symptoms. He does describe anxiety and concern over his current situation. Allergies: Coded Allergies: No Known Allergies (Unverified , 09/11/16) Patient History Past Medical History: see triage record, old chart reviewed, psych hx Social History: Denies: alcohol use, drug use, smoking Reviewed Nursing Documentation: PMH: Agreed Nursing Documentation-PMH Past Medical History: No History, Except For History Of Psychiatric Problem: Yes Review of Systems Psychiatric: Reports: SI, anxiety, depressed feelings, emotional problems, hallucinations, prior hx, see HPI All Other Systems: negative except mentioned in HPI Physical Exam Vital Signs Date Time Temp Pulse Resp B/P Pulse Ox O2 Delivery O2 Flow Rate FiO2 11/27/16 09:37 98.1 98 16 143/90 100 Room Air Sp02 EP Interpretation: reviewed, normal General Appearance: normal inspection, well appearing, no apparent distress, alert Head: atraumatic Eyes: bilateral eye normal inspection ENT: normal ENT inspection, hearing grossly normal, normal voice Neck: normal inspection, full range of motion, supple, no bony tend Respiratory: normal inspection, lungs clear, normal breath sounds, no respiratory distress, no retraction, no wheezing Cardiovascular #1: regular rate, rhythm, no edema Gastrointestinal: normal inspection, normal bowel sounds, non tender, soft, no guarding, no hernia Genitourinary: no CVA tenderness Musculoskeletal: normal inspection, back normal, normal range of motion Neurologic: normal inspection, alert, responsive, speech normal Psychiatric: normal inspection, judgement/insight normal, mood/affect normal Skin: normal inspection, normal color, no rash Medical Decision Making Diagnostic Impression: Primary Impression: Suicidal ideation Additional Impressions: Bipolar disorder Behavioral disorder Suicidal intent ER Course Patient here with complaint of suicidality secondary likely to medication noncompliance and recent homelessness, significant situational stressors. He does not have a current psychiatrist and is asking for it mission and help with psychiatry services as well as mental health and housing. No medical conditions apparent. Otherwise healthy. We'll do baseline screening labs as well as provide by mouth Ativan x1 and contact our ED psychiatry service for evaluation and emerged department as well as our director of social work to see if they can offer assistance with his housing needs. Social work met with this patient in the patient describes his need for inpatient psychiatric, not to be relieved with the offer of housing. 1432, t this time our vices not evaluated the patient. I may be signing this patient out to Dr. White to follow their recommendations. Laboratory Tests Test 11/27/16 09:46 White Blood Count 12.8 K/UL (4.8-10.8) H Red Blood Count 5.29 M/UL (4.70-6.10) Hemoglobin 15.5 G/DL (14.2-18.0) Hematocrit 48.9 % (42.0-52.0) Mean Corpuscular Volume 92 FL (80-99) Mean Corpuscular Hemoglobin 29.3 PG (27.0-31.0) Mean Corpuscular Hemoglobin Concent 31.7 G/DL (32.0-36.0) L Red Cell Distribution Width 11.7 % (11.6-14.8) Platelet Count 231 K/UL (150-450) Mean Platelet Volume 8.3 FL (6.5-10.1) Neutrophils (%) (Auto) 79.7 % (45.0-75.0) H Lymphocytes (%) (Auto) 12.0 % (20.0-45.0) L Monocytes (%) (Auto) 6.2 % (1.0-10.0) Eosinophils (%) (Auto) 1.3 % (0.0-3.0) Basophils (%) (Auto) 0.8 % (0.0-2.0) Sodium Level 136 mEQ/L (135-145) Potassium Level 3.6 mEQ/L (3.4-4.9) Chloride Level 97 mEQ/L (98-107) L Carbon Dioxide Level 26 mEQ/L (20-30) Anion Gap 13 (5-15) Blood Urea Nitrogen 10 mg/dL (7-23) Creatinine 1.0 mg/dL (0.7-1.2) Estimat Glomerular Filtration Rate > 60 mL/min (>60) Glucose Level 127 mg/dL (74-106) H Calcium Level 9.7 mg/dL (8.6-10.2) Total Bilirubin 0.5 mg/dL (0.0-1.2) Aspartate Amino Transf (AST/SGOT) 15 U/L (5-40) Alanine Aminotransferase (ALT/SGPT) 13 U/L (3-41) Alkaline Phosphatase 85 U/L (40-129) Total Protein 7.6 g/dL (6.6-8.7) Albumin 4.5 g/dL (3.5-5.2) Globulin 3.1 g/dL Albumin/Globulin Ratio 1.4 (1.0-2.7) Salicylates Level < 1 mg/dL (10-30) L Urine Opiates Screen Negative (NEGATIVE) Acetaminophen Level < 10 ug/mL (10-30) L Urine Barbiturates Screen Negative (NEGATIVE) Phencyclidine (PCP) Screen Negative (NEGATIVE) Urine Amphetamines Screen Negative (NEGATIVE) Urine Benzodiazepines Screen Negative (NEGATIVE) Urine Cocaine Screen Negative (NEGATIVE) Urine Marijuana (THC) Screen Negative (NEGATIVE) Serum Alcohol < 10 mg/dL Last Vital Signs Date Time Temp Pulse Resp B/P Pulse Ox O2 Delivery O2 Flow Rate FiO2 11/27/16 09:37 98.1 98 16 143/90 100 Room Air Referrals: [facility],REFERRING (PCP) Jigar Rodriguez MD Nov 27, 2016 10:43
[2016-11-27] MEDS ORDERED: LORazepam 1mg tab ORAL ONE (10:45)
[2016-11-27 11:15] VITALS: BP 114/76
[2016-11-27 15:43] VITALS: BP 127/87
--- NOTE | 2016-11-27 23:02 | Consultation ---
DATE OF CONSULTATION: 11/27/2016 HISTORY OF PRESENT ILLNESS: This is a 41-year-old male, with a history of substance abuse disorder and schizophrenia, who has been admitted to the emergency room this morning with a chief complaint of suicidal ideation and being homeless. The patient stated that he is hearing voices, however, unable to define what he was hearing. He also has been recently discharged from [facility] in [place]. He was seen by a nurse practitioner, . He was started on Prozac as well as Zyprexa. For the past three days, he has not been taking his medication and he stated that at the [facility], he was offered placement, however, he denied the placement and now, he wants to be admitted to the hospital and be placed in a board and care. He was seen by social worker health services this morning and expressed suicidal ideation. Currently, he is not suicidal and he stated he knows in order to get in to a psychiatric hospital, he needs to say that he is suicidal . The patient is not endorsing any depressive symptoms beside auditory hallucination. His affect is full range and is appropriate. He denies using any drugs or alcohol. His system is negative for drugs. He has been off drugs for the past 12 years. The patient is not endorsing any manic symptoms. No homicidal ideation. PAST PSYCHIATRIC HISTORY: He has a history of schizophrenia, long psychiatric hospitalization in the past, and he has been treated with antipsychotics and antidepressants, and noncompliance. No suicide attempt in the past. PAST MEDICAL HISTORY: None. ALLERGIES: No known drug allergies. SUBSTANCE ABUSE HISTORY: He has been abstinent from any drugs or alcohol for 12 years. MENTAL STATUS EXAMINATION: Alert and oriented x4. Cooperative with examination. There is no psychomotor retardation or agitation. His mood is neutral. Affect is full range. Congruent with mood and appropriate. Thought process is linear and goal oriented. Thought content, positive for auditory hallucination. He states that he is unable to hear people what they say. No delusions. No suicidal or homicidal ideation. Cognition is intact. Insight and judgment is fair. ASSESSMENT: Clinton I Schizophrenia by history. Clinton II Deferred. Clinton III None. Clinton IV Homelessness. Clinton V Global assessment of function is 60. PLAN: 1. The patient already has prescription for Zyprexa and Prozac. 2. He is refusing any referral to outpatient program. 3. He will be discharged as he does not meet the criteria for 5150 hold or inpatient level of care. 4. viscose cellar worker met with him. I spoke with Maddy, who does not think he needs to be admitted to the [facility] and discussed with the ER doctor. Colin Bojorquez M.D. DR: KAMINI JOB#: [id number] CC:
== END 2016-11-27 15:46 | disposition home or self-care (01) ==
LOC: EMR 09:49
DX: R45.851 Suicidal ideations (principal); F31.9 Bipolar disorder, unspecified; F91.9 Conduct disorder, unspecified; Z59.0 Homelessness; R44.0 Auditory hallucinations; F20.9 Schizophrenia, unspecified
CPT/HCPCS: 36415; 80053; 80300; 80329; 85025; 99283

== ENCOUNTER 2017-03-01 14:21 | Emergency (ER) | payer OTHER ==
[2017-03-01] VITALS (7 sets, daily range): BP systolic 118–128; BP diastolic 69–80
[~2017-03-01] VITALS: Ht 177.8 cm; Wt 72.6 kg
[2017-03-01] MEDS ORDERED: ZYPREXA10 MG ORAL (14:29)
--- NOTE | 2017-03-01 14:41 | Emergency Room Report ---
History of Present Illness General Chief Complaint: General Complaint Source: Patient Present Illness HPI 41YOM walk-in NOT ON HOLD with hearing voices - male and female - telling him to take pills and kill himself. has had 2-3 previous OD attempts, also with pills. History of schizophrenia. Compliant with Zyprexa and Prozac. Took Prozac dose today, but not zyprexa. Still homeless. Has steady disability income now. Depressed about being homeless, jobless. Denies drug use today. States "sober for 13 years." Patient had psych eval here in ED in November 2016 Per my review of Cx note, patient has history of schizophrenia, substance abuse , and is homeless At the time, patient endorsed that he knew to say he was suicidal in order to obtain a bed placement in a psych facility Allergies: Coded Allergies: No Known Allergies (Unverified , 09/11/16) Patient History Past Medical History: psych hx Past Surgical History: none Pertinent Family History: none Social History: Denies: smoking, alcohol use, drug use Immunizations: UTD Reviewed Nursing Documentation: PMH: Agreed, PSxH: Agreed Nursing Documentation-PMH History Of Psychiatric Problem: Yes - schizo effective disorder Review of Systems All Other Systems: negative except mentioned in HPI Physical Exam Vital Signs Date Time Temp Pulse Resp B/P (MAP) Pulse Ox O2 Delivery O2 Flow Rate FiO2 03/01/17 14:25 98.1 69 18 128/80 97 Room Air Sp02 EP Interpretation: reviewed, normal General Appearance: normal inspection, well appearing, no apparent distress, alert, GCS 15, non-toxic Head: normocephalic, atraumatic Eyes: bilateral eye PERRL, bilateral eye EOMI ENT: normal ENT inspection, hearing grossly normal, normal voice Neck: normal inspection, full range of motion, supple, no bony tend Respiratory: normal inspection, lungs clear, normal breath sounds, no respiratory distress, no retraction, no wheezing Cardiovascular #1: regular rate, rhythm, no edema Gastrointestinal: normal inspection, normal bowel sounds, non tender, soft, no guarding, no hernia Genitourinary: no CVA tenderness Musculoskeletal: normal inspection, back normal, normal range of motion, Maude' s Sign negative Neurologic: normal inspection, alert, oriented x3, responsive, railroad operator III-XII nml as tested, speech normal Psychiatric: normal inspection, judgement/insight normal, mood/affect normal, depressed affect Skin: normal inspection, normal color, no rash Medical Decision Making Diagnostic Impression: Primary Impression: Behavioral disorder Additional Impression: Suicidal ideation ER Course VSS. Afebrile. Not septic/sick appearing Mild leuks - no PNA on CXR. UA negative for UTI. Abdomen, soft, NT/ND - Doubt sepsis given well appearance Utox + for MJ Tylenol, ASA levels negative Medically cleared for psych evaluation. Chest X-Ray Diagnostic Results Chest X-Ray Diagnostic Results : Chest X-Ray Ordered: Yes # of Views/Limited/Complete: 1 View Indication: Other - med clear Interpretation: no consolidation, no effusion, no pneumothorax, no acute cardiopulmonary disease Impression: No acute disease Last Vital Signs Date Time Temp Pulse Resp B/P (MAP) Pulse Ox O2 Delivery O2 Flow Rate FiO2 03/01/17 14:25 98.1 69 18 128/80 97 Room Air Status: improved Disposition: XFER TO PSYCH HOSP/UNIT Condition: Serious WENDY DELCID M.D. Mar 01, 2017 14:41
[2017-03-01 16:00] LABS: EOSINOPHILS % (AUTO) 1.2 % (0.0-3.0); LYMPHOCYTES % (AUTO) 12.9 % (20.0-45.0); MEAN CORPUSCULAR HEMOGLOBIN 29.8 PG (27.0-31.0); MEAN CORPUSCULAR HGB CONC 32.1 G/DL (32.0-36.0); MEAN CORPUSCULAR VOLUME 93 FL (80-99); MEAN PLATELET VOLUME 7.9 FL (6.5-10.1); MONOCYTES % (AUTO) 6.4 % (1.0-10.0); NEUTROPHILS % (AUTO) 78.4 % (45.0-75.0); PLATELET COUNT 203 K/UL (150-450); RED BLOOD COUNT 4.56 M/UL (4.70-6.10); WHITE BLOOD COUNT 12.5 K/UL (4.8-10.8)
[2017-03-01 16:45] LABS: ALANINE AMINOTRANSFERASE 19 U/L (12-78); ALCOHOL < 3 mg/dL; ANION GAP 10 mmol/L (5-15); ASPARTATE AMINO TRANSFERASE 16 U/L (15-37); CALCIUM 8.9 MG/DL (8.5-10.1); CARBON DIOXIDE 27 MMOL/L (21-32); CHLORIDE 105 MMOL/L (98-107); GLOMERULAR FILTRATION RATE > 60 mL/min (>60); POTASSIUM 3.9 MMOL/L (3.5-5.1); SODIUM 142 MMOL/L (136-145); TOTAL PROTEIN 7.5 G/DL (6.4-8.2)
[2017-03-01 16:47] LABS: ACETAMINOPHEN < 10 MCG/ML (10-30)
[2017-03-01 16:58] LABS: APPEARANCE,URINE CLEAR; KETONES,URINE NEGATIVE (NEGATIVE); LEUKOCYTE ESTERASE ,URINE 1+ (NEGATIVE); NITRITE,URINE NEGATIVE (NEGATIVE); PH,URINE 5 (4.5-8.0); PROTEIN,URINE NEGATIVE (NEGATIVE); UROBILINOGEN,URINE 1 MG/DL (0.0-1.0)
[2017-03-01 17:06] LABS: BACTERIA,URINE OCCASIONAL /HPF; MUCUS,URINE MANY /LPF (NONE/OCC)
[2017-03-02 02:06] VITALS: BP 122/72
[2017-03-02 04:14] VITALS: BP 122/72
[2017-03-02 06:04] VITALS: BP 118/68
[2017-03-02 08:07] VITALS: BP 116/70
--- NOTE | 2017-03-02 08:39 | Diagnostic Imaging Report ---
Indication: PAIN Technique: One view of the chest Comparison: 07/05/2016 Findings: The right costophrenic angle is blunted. There is some atelectasis at the left lung base. The lungs are otherwise clear. The heart size is normal. Impression: Probable small right pleural effusion Left basilar atelectasis
[2017-03-02 11:45] VITALS: BP 123/88
[2017-03-02 13:54] VITALS: BP 114/76
== END 2017-03-02 13:54 | disposition home or self-care (01) ==
LOC: EMR 14:50
DX: F91.9 Conduct disorder, unspecified (principal); R45.851 Suicidal ideations; F25.9 Schizoaffective disorder, unspecified
CPT/HCPCS: 36415; 71010; 80053; 80307; 80329; 81003; 85025; 99285

== ENCOUNTER 2017-05-29 23:41 | Emergency (ER) | payer OTHER ==
[~2017-05-29] VITALS: Ht 180.3 cm; Wt 72.6 kg
[~2017-05-29 23:41] MED LIST changes: +ZYPREXA10 MG ORAL
[2017-05-30] VITALS: BP 121/74
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
[2017-05-30 03:05] VITALS: BP 126/75
[2017-05-30 05:52] VITALS: BP 122/72
[2017-05-30 05:53] VITALS: BP 122/72
== END 2017-05-30 05:56 | disposition home or self-care (01) ==
LOC: EMR 23:50
DX: F29 Unspecified psychosis not due to a substance or known physiological condition (principal); R45.851 Suicidal ideations; F25.9 Schizoaffective disorder, unspecified
CPT/HCPCS: 99283

== ENCOUNTER 2017-09-28 19:51 | Emergency (ER) | payer OTHER ==
[~2017-09-28] VITALS: Ht 177.8 cm; Wt 72.6 kg
[2017-09-28 20:00] VITALS: BP 118/79
[2017-09-28] MEDS ORDERED: LORazepam 1mg tab ORAL ONE (20:15)
[2017-09-28 20:44] LABS: BASOPHILS % (AUTO) 0.9 % (0.0-2.0); EOSINOPHILS % (AUTO) 4.1 % (0.0-3.0); HEMATOCRIT 44.2 % (42.0-52.0); HEMOGLOBIN 14.4 G/DL (14.2-18.0); MEAN CORPUSCULAR VOLUME 90 FL (80-99); MONOCYTES % (AUTO) 6.9 % (1.0-10.0); PLATELET COUNT 213 K/UL (150-450)
[2017-09-28 20:58] LABS: ANION GAP 6 mmol/L (5-15); BLOOD UREA NITROGEN 8 mg/dL (7-18); CALCIUM 9.2 MG/DL (8.5-10.1); CARBON DIOXIDE 29 MMOL/L (21-32); CHLORIDE 104 MMOL/L (98-107); POTASSIUM 4.2 MMOL/L (3.5-5.1); SODIUM 139 MMOL/L (136-145)
[2017-09-28 21:02] LABS: ALANINE AMINOTRANSFERASE 17 U/L (12-78); ALBUMIN 3.6 G/DL (3.4-5.0); ALBUMIN/GLOBULIN RATIO 0.9 (1.0-2.7); ALKALINE PHOSPHATASE 65 U/L (46-116); ASPARTATE AMINO TRANSFERASE 13 U/L (15-37); BILIRUBIN,TOTAL 0.3 MG/DL (0.2-1.0)
[2017-09-28 22:24] VITALS: BP 111/68
[2017-09-28 22:27] LABS: APPEARANCE,URINE CLEAR; BILIRUBIN, URINE NEGATIVE (NEGATIVE); COLOR,URINE PALE YELLOW; GLUCOSE, URINE (UA) NEGATIVE (NEGATIVE); KETONES,URINE NEGATIVE (NEGATIVE); LEUKOCYTE ESTERASE ,URINE NEGATIVE (NEGATIVE); NITRITE,URINE NEGATIVE (NEGATIVE); PH,URINE 6 (4.5-8.0); PROTEIN,URINE NEGATIVE (NEGATIVE); UROBILINOGEN,URINE NORMAL MG/DL (0.0-1.0)
--- NOTE | 2017-09-28 22:28 | Emergency Room Report ---
History of Present Illness General Chief Complaint: Behavioral Complaint Source: Patient Present Illness HPI Patient presents with increased hearing voices. He's taking Zyprexa at this time. Denies suicidal or homicidal ideation. He has a diagnosis of bipolar disorder with paranoid tendencies for 8 years. He's been on multiple medications in the past. He's in a transition at this time and being seen in at [facility]. The voices are critical of him and he is having trouble dealing with them. The patient denies drug use or alcohol. He's been 8 years sober. The patient does smoke cigarettes. He has a mild nonproductive cough. He denies any wheezing, chest pain, nausea vomiting or diarrhea. No dysuria. The patient is in the [facility] and will go into transitional housing next week. He plans to attend [facility]. He has presented here in the past with SI. He denies this at this time. Allergies: Coded Allergies: No Known Allergies (Unverified , 09/11/16) Patient History Past Medical History: see triage record Social History: Reports: smoking; Denies: alcohol use - Prior, drug use - Prior Social History Narrative transitional [facility] - plans to attend [employer] to resume studies in business Reviewed Nursing Documentation: PMH: Agreed; PSxH: Agreed Nursing Documentation-PMH History Of Psychiatric Problem: Yes - schizo-effective Review of Systems All Other Systems: negative except mentioned in HPI Physical Exam Vital Signs Date Time Temp Pulse Resp B/P (MAP) Pulse Ox O2 Delivery O2 Flow Rate FiO2 09/28/17 19:55 98.1 92 14 118/79 95 Room Air 98.1 Sp02 EP Interpretation: reviewed, normal General Appearance: well appearing, no apparent distress, GCS 15 Head: normocephalic Eyes: bilateral eye normal inspection, bilateral eye PERRL ENT: moist mucus membranes Neck: supple Respiratory: lungs clear, normal breath sounds Cardiovascular #1: regular rate, rhythm Cardiovascular #2: 2+ radial (R) Gastrointestinal: normal inspection, normal bowel sounds, non tender, no mass, non-distended Musculoskeletal: back normal, gait/station normal, normal range of motion Neurologic: alert, oriented x3, grossly normal Psychiatric: no suicidal/homicidal ideation, other - alleged auditory hallucinations, calm focused Skin: normal inspection, warm/dry Medical Decision Making Diagnostic Impression: Primary Impression: Bipolar disorder Qualified Codes: F31.9 - Bipolar disorder, unspecified Additional Impression: Auditory hallucinations ER Course Patient presents with hearing voices and denies suicidal ideation. Differential includes acute exacerbation of bipolar disorder, electrolyte imbalance, drug ingestion amongst others. The patient will be evaluated with labs. The patient demonstrates purposeful behavior and does not exhibit risk to self. Labs unremarkable. After Ativan was given patient was more calm. He feels the voices are not significant at this time. He states he feels stable for outpatient observation and treatment. He'll be seeing his physicians at [facility] on Saturday. He is looking forward to attending [facility] in the near future. He contracts for safety and denies suicidal or homicidal ideation at this time. Patient stable for outpatient observation and treatment. Laboratory Tests Test 09/28/17 20:30 09/28/17 22:18 White Blood Count 9.0 K/UL (4.8-10.8) Red Blood Count 4.90 M/UL (4.70-6.10) Hemoglobin 14.4 G/DL (14.2-18.0) Hematocrit 44.2 % (42.0-52.0) Mean Corpuscular Volume 90 FL (80-99) Mean Corpuscular Hemoglobin 29.3 PG (27.0-31.0) Mean Corpuscular Hemoglobin Concent 32.5 G/DL (32.0-36.0) Red Cell Distribution Width 12.0 % (11.6-14.8) Platelet Count 213 K/UL (150-450) Mean Platelet Volume 7.4 FL (6.5-10.1) Neutrophils (%) (Auto) 66.0 % (45.0-75.0) Lymphocytes (%) (Auto) 22.0 % (20.0-45.0) Monocytes (%) (Auto) 6.9 % (1.0-10.0) Eosinophils (%) (Auto) 4.1 % (0.0-3.0) H Basophils (%) (Auto) 0.9 % (0.0-2.0) Sodium Level 139 MMOL/L (136-145) Potassium Level 4.2 MMOL/L (3.5-5.1) Chloride Level 104 MMOL/L (98-107) Carbon Dioxide Level 29 MMOL/L (21-32) Anion Gap 6 mmol/L (5-15) Blood Urea Nitrogen 8 mg/dL (7-18) Creatinine 1.0 MG/DL (0.55-1.30) Estimate Glomerular Filtration Rate > 60 mL/min (>60) Glucose Level 100 MG/DL (74-106) Calcium Level 9.2 MG/DL (8.5-10.1) Total Bilirubin 0.3 MG/DL (0.2-1.0) Aspartate Amino Transferase (AST) 13 U/L (15-37) L Alanine Aminotransferase (ALT) 17 U/L (12-78) Alkaline Phosphatase 65 U/L (46-116) Total Protein 7.5 G/DL (6.4-8.2) Albumin 3.6 G/DL (3.4-5.0) Globulin 3.9 g/dL Albumin/Globulin Ratio 0.9 (1.0-2.7) L Salicylates Level 4.0 ug/mL (2.8-20) Acetaminophen Level < 2 MCG/ML (10-30) L Serum Alcohol < 3 mg/dL Urine Color Pale yellow Urine Appearance Clear Urine pH 6 (4.5-8.0) Urine Specific [place] 1.015 (1.005-1.035) Urine Protein Negative (NEGATIVE) Urine Glucose (UA) Negative (NEGATIVE) Urine Ketones Negative (NEGATIVE) Urine Occult Blood 1+ (NEGATIVE) H Urine Nitrite Negative (NEGATIVE) Urine Bilirubin Negative (NEGATIVE) Urine Urobilinogen Normal MG/DL (0.0-1.0) Urine Leukocyte Esterase Negative (NEGATIVE) Urine RBC 5-10 /HPF (0 - 0) H Urine WBC 0-2 /HPF (0 - 0) Urine Squamous Epithelial Cells Occasional /LPF Urine Bacteria Few /HPF (NONE) Urine Mucus Moderate /LPF (NONE/OCC) H Urine Opiates Screen Negative (NEGATIVE) Urine Barbiturates Screen Negative (NEGATIVE) Phencyclidine (PCP) Screen Negative (NEGATIVE) Urine Amphetamines Screen Negative (NEGATIVE) Urine Benzodiazepines Screen Negative (NEGATIVE) Urine Cocaine Screen Negative (NEGATIVE) Urine Marijuana (THC) Screen Negative (NEGATIVE) Last Vital Signs Date Time Temp Pulse Resp B/P (MAP) Pulse Ox O2 Delivery O2 Flow Rate FiO2 09/28/17 22:50 97.9 81 12 111/68 97 Room Air 97.9 Status: improved Disposition: HOME, SELF-CARE Condition: Improved Scripts Lorazepam* (ATIVAN*) 1 Mg Tablet 1 MG ORAL THREE TIMES A DAY PRN for voices/anxiety, #6 TAB Prov: Edy Cain M.D. 09/28/17 Referrals: NON PHYSICIAN (PCP) Edy Cain M.D. September 28, 2017 22:28
[2017-09-28] MEDS ORDERED: ATIVAN1 MG ORAL (22:31)
[2017-09-28 22:50] VITALS: BP 111/68
== END 2017-09-28 22:50 | disposition home or self-care (01) ==
LOC: EMR 20:49
DX: F31.9 Bipolar disorder, unspecified (principal); R44.0 Auditory hallucinations; F17.210 Nicotine dependence, cigarettes, uncomplicated; F17.200 Nicotine dependence, unspecified, uncomplicated
CPT/HCPCS: 36415; 80053; 80307; 80329; 81003; 85025; 99283

== ENCOUNTER 2017-10-05 21:19 | Emergency (ER) | payer OTHER ==
[~2017-10-05] VITALS: Ht 177.8 cm; Wt 72.6 kg
[~2017-10-05 21:19] MED LIST changes: +ATIVAN1 MG ORAL
--- NOTE | 2017-10-05 21:36 | Emergency Room Report ---
History of Present Illness General Chief Complaint: Behavioral Complaint Source: Patient Present Illness HPI This a 40-year-old male with history of schizophrenia. He is currently back on his Zyprexa starting last week. He has follow-up with mental health in [place]. He presents with chief complaint of hearing voices. More than last week. No suicidal thoughts or homicidal thought. No other complaint. Denies any fever chills. Denies any palpitation. Denies any chest pain. Allergies: Coded Allergies: No Known Allergies (Unverified , 09/11/16) Patient History Past Medical History: see triage record, old chart reviewed, schizophrenia Past Surgical History: other Family History: none Social History: tobacco use Immunizations: other Reviewed Nursing Documentation: PMH: Agreed; PSxH: Agreed Nursing Documentation-PMH Past Medical History: No History, Except For Hx Cardiac Problems: No - Hypoglycemia History Of Psychiatric Problem: Yes - Schizoaffective Review of Systems ENT: Denies: sore throat Cardiovascular: Denies: chest pain, palpitations Gastrointestinal/Abdominal: Denies: nausea, vomiting, diarrhea Musculoskeletal: Denies: back problems Skin: Denies: rash Neurological: Denies: NGUYEN, seizures All Other Systems: negative except mentioned in HPI Physical Exam Vital Signs Date Time Temp Pulse Resp B/P (MAP) Pulse Ox O2 Delivery O2 Flow Rate FiO2 10/05/17 21:25 98.0 96 16 128/82 99 Room Air 98.1 vitals normal Sp02 EP Interpretation: reviewed, normal General Appearance: alert/responsive, no apparent distress, non-toxic Head: normocephalic, atraumatic Eyes: PERRL, EOMI ENT: oropharynx normal Neck: supple/symm/no masses Respiratory: effort normal, no rhonchi, no wheezing Cardiovascular: no murmur, gallop, rub Gastrointestinal: non-tender, no mass, non-distended, no rebound/guarding, normal bowel sounds Musculoskeletal: gait & station normal Neurologic: oriented x3, sensory intact, motor strength/tone normal Skin: no rash, normal palpation Medical Decision Making Diagnostic Impression: Primary Impression: Auditory hallucinations ER Course Patient presents with auditory hallucination. This is his baseline. His waxing and waning. No suicidal thoughts or homicidal thought. Patient does have increasing stressors with homelessness. He has close follow-up with mental health already. We'll have her follow-up with mental health for adjustment of his medication. I see no criteria for 5150. He is not intoxicated. He is not suicidal or homicidal. Last Vital Signs Date Time Temp Pulse Resp B/P (MAP) Pulse Ox O2 Delivery O2 Flow Rate FiO2 10/05/17 21:25 98.0 96 16 128/82 99 Room Air 98.1 Status: unchanged Disposition: HOME, SELF-CARE Condition: Stable Additional Instructions: Follow-up with mental health within a week for adjustment of your medication. Return if symptom worsen. REILLY KHAN M.D. Oct 05, 2017 21:36
[2017-10-05 21:41] VITALS: BP 128/82
== END 2017-10-05 21:43 | disposition home or self-care (01) ==
LOC: EMR 21:36
DX: R44.0 Auditory hallucinations (principal); F20.9 Schizophrenia, unspecified; Z59.0 Homelessness
CPT/HCPCS: 99283

== ENCOUNTER 2017-11-15 03:03 | Emergency (ER) | payer OTHER ==
[~2017-11-15] VITALS: Ht 177.8 cm; Wt 72.6 kg
[2017-11-15] MEDS ORDERED: ZYPREXA10 MG ORAL (03:18)
[2017-11-15 03:30] VITALS: BP 126/78
--- NOTE | 2017-11-15 04:00 | Emergency Room Report ---
History of Present Illness General Chief Complaint: Behavioral Complaint Source: Patient Present Illness HPI This is a 42-year-old male with a psychiatric history. He is taking Zyprexa. He presents with chief complaint of increasing hearing voices. Said any on and off problem. It waxes and wanes. He claimed that his mom is trying to get him back to [place]. A dermatology technician we'll give him a passport within 24 hours. You' re reviewed at however he said he need to be in the hospital because he does not like to be in a care home. He denies any suicidal thoughts or homicidal thought. He has no particular plan. He is taking Zyprexa. He just saw his psychiatrist already. Allergies: Coded Allergies: No Known Allergies (Unverified , 09/11/16) Patient History Past Medical History: see triage record, old chart reviewed, psych hx Past Surgical History: none Family History: none Social History: tobacco use Immunizations: UTD, other Reviewed Nursing Documentation: PMH: Agreed; PSxH: Agreed Nursing Documentation-PMH Past Medical History: No History, Except For Hx Cardiac Problems: No - Hypoglycemia History Of Psychiatric Problem: Yes - schizoaffective disorder Review of Systems ENT: Denies: sore throat Cardiovascular: Denies: chest pain, palpitations Gastrointestinal/Abdominal: Denies: nausea, vomiting, diarrhea Musculoskeletal: Denies: back problems Skin: Denies: rash Neurological: Denies: NGUYEN, seizures All Other Systems: negative except mentioned in HPI Physical Exam Vital Signs Date Time Temp Pulse Resp B/P (MAP) Pulse Ox O2 Delivery O2 Flow Rate FiO2 11/15/17 03:14 98.3 80 16 126/78 98 Room Air 98.2 vitals normal Sp02 EP Interpretation: reviewed, normal General Appearance: alert/responsive, no apparent distress, non-toxic Head: normocephalic, atraumatic Eyes: PERRL, EOMI ENT: oropharynx normal Neck: supple/symm/no masses Respiratory: effort normal, no rhonchi, no wheezing Cardiovascular: no murmur, gallop, rub Gastrointestinal: non-tender, no mass, non-distended, no rebound/guarding, normal bowel sounds Musculoskeletal: gait & station normal Neurologic: oriented x3, sensory intact, motor strength/tone normal Skin: no rash, normal palpation Medical Decision Making Diagnostic Impression: Primary Impression: Auditory hallucinations ER Course Patient with auditory hallucination. This is unchanged before. He has no particular plans. I see no criteria for 5150. This patient is a chronic risk of self injury due to poor impulse control, limited coping skills, and judgment intermittently impaired by intoxication. I believe that the available clinical evidence to suggest that these characteristics derived primarily from personality disorder and are likely very stable over time. Hospitalization would likely attenuate risk of self-harm only during usp period, without lasting risk reduction. Serious self-harm , while possible, would likely be inadvertent, and because of impulsivity, and foreseeable. For these reasons, I do not believe hospitalization would provide meaningful reduction in risk of self-harm. Last Vital Signs Date Time Temp Pulse Resp B/P (MAP) Pulse Ox O2 Delivery O2 Flow Rate FiO2 11/15/17 03:30 98.2 80 16 126/78 98 Room Air 98.2 Status: unchanged Disposition: HOME, SELF-CARE Condition: Stable Referrals: [facility],REFERRING (PCP) Additional Instructions: Take your psychiatric medicine. Follow-up with your mental health provider within a week. Return if worse. REILLY KHAN M.D. Nov 15, 2017 03:59
[2017-11-15 05:25] VITALS: BP 125/78
[2017-11-15 05:26] VITALS: BP 125/78
== END 2017-11-15 05:27 | disposition home or self-care (01) ==
LOC: EMR 03:33
DX: R44.0 Auditory hallucinations (principal); F25.9 Schizoaffective disorder, unspecified
CPT/HCPCS: 99283

== ENCOUNTER 2018-02-06 03:05 | Emergency (ER) | payer OTHER ==
[~2018-02-06] VITALS: Ht 177.8 cm; Wt 72.6 kg
[2018-02-06] MEDS ORDERED: ZyPREXA Zydis 10mg tab ORAL ONE (03:30)
--- NOTE | 2018-02-06 03:33 | Emergency Room Report ---
History of Present Illness General Chief Complaint: Behavioral Complaint Source: Patient (Minor Minor MD) Present Illness HPI Patient 42-year-old male who presented after increased the auditory hallucinations for approximately one and half hours. The patient prior history of bipolar disorder. He reports having intermittent noncompliance with his medications. He reports taking his Zyprexa as well as Atarax and antidepressant. The patient was having some suicidal thoughts. (Minor Minor MD) Allergies: Coded Allergies: No Known Allergies (Unverified , 09/11/16) Patient History Past Medical History: see triage record Reviewed Nursing Documentation: PMH: Agreed; PSxH: Agreed (Minor Minor MD) Nursing Documentation-PMH Hx Cardiac Problems: No - Hypoglycemia History Of Psychiatric Problem: Yes - schizoaffective (Minor Minor MD) Review of Systems All Other Systems: negative except mentioned in HPI (Minor Minor MD) Physical Exam Vital Signs Date Time Temp Pulse Resp B/P (MAP) Pulse Ox O2 Delivery O2 Flow Rate FiO2 02/06/18 03:08 97.5 86 18 132/84 98 Room Air 97.5 Sp02 EP Interpretation: reviewed, normal General Appearance: alert/responsive, no apparent distress, GCS 15, non-toxic Head: atraumatic Eyes: PERRL, lids + conjunctiva normal ENT: hearing intact, no angioedema Neck: supple/symm/no masses, no meningismus Respiratory: effort normal, chest symmetrical Cardiovascular: no edema Cardiovascular #2: 2+ carotid (R), 2+ carotid (L), 2+ dorsalis pedis (R), 2+ dorsalis pedis (L) Gastrointestinal: normal inspection Musculoskeletal: gait & station normal, strength & tone normal, normal ROM, non -tender Neurologic: oriented x3, sensory intact, normal speech Skin: no rash, well hydrated Lymphatic: normal inspection (Minor Minor MD) Medical Decision Making Diagnostic Impression: Primary Impression: Bipolar disorder Qualified Codes: F31.9 - Bipolar disorder, unspecified Additional Impression: Auditory hallucinations ER Course patient presented for psychosis. Differential diagnoses include substance abuse , psychosis, bipolar disorder, depression, malingering. Because of complexity of patient's case laboratory testing and imaging studies were ordered.The laboratory studies are unremarkable. Patient medically cleared for psychiatric evaluation. Labs Test 02/06/18 04:14 White Blood Count 9.0 K/UL (4.8-10.8) Red Blood Count 5.30 M/UL (4.70-6.10) Hemoglobin 15.7 G/DL (14.2-18.0) Hematocrit 46.6 % (42.0-52.0) Mean Corpuscular Volume 88 FL (80-99) Mean Corpuscular Hemoglobin 29.6 PG (27.0-31.0) Mean Corpuscular Hemoglobin Concent 33.7 G/DL (32.0-36.0) Red Cell Distribution Width 11.3 % (11.6-14.8) Platelet Count 211 K/UL (150-450) Mean Platelet Volume 7.5 FL (6.5-10.1) Neutrophils (%) (Auto) 61.3 % (45.0-75.0) Lymphocytes (%) (Auto) 24.8 % (20.0-45.0) Monocytes (%) (Auto) 7.8 % (1.0-10.0) Eosinophils (%) (Auto) 4.7 % (0.0-3.0) Basophils (%) (Auto) 1.5 % (0.0-2.0) Urine Color Yellow Urine Appearance Clear Urine pH 6 (4.5-8.0) Urine Specific [place] 1.025 (1.005-1.035) Urine Protein 1+ (NEGATIVE) Urine Glucose (UA) Negative (NEGATIVE) Urine Ketones Negative (NEGATIVE) Urine Blood 2+ (NEGATIVE) Urine Nitrite Negative (NEGATIVE) Urine Bilirubin Negative (NEGATIVE) Urine Urobilinogen Normal MG/DL (0.0-1.0) Urine Leukocyte Esterase 1+ (NEGATIVE) Urine RBC 2-4 /HPF (0 - 0) Urine WBC 0-2 /HPF (0 - 0) Urine Squamous Epithelial Cells Few /LPF (NONE/OCC) Urine Bacteria None /HPF (NONE) Sodium Level 138 MMOL/L (136-145) Potassium Level 3.6 MMOL/L (3.5-5.1) Chloride Level 102 MMOL/L (98-107) Carbon Dioxide Level 30 MMOL/L (21-32) Anion Gap 6 mmol/L (5-15) Blood Urea Nitrogen 11 mg/dL (7-18) Creatinine 1.0 MG/DL (0.55-1.30) Estimat Glomerular Filtration Rate > 60 mL/min (>60) Glucose Level 73 MG/DL (74-106) Calcium Level 8.8 MG/DL (8.5-10.1) Total Bilirubin 0.6 MG/DL (0.2-1.0) Aspartate Amino Transf (AST/SGOT) 14 U/L (15-37) Alanine Aminotransferase (ALT/SGPT) 14 U/L (12-78) Alkaline Phosphatase 72 U/L (46-116) Total Protein 7.7 G/DL (6.4-8.2) Albumin 3.9 G/DL (3.4-5.0) Globulin 3.8 g/dL Albumin/Globulin Ratio 1.0 (1.0-2.7) Salicylates Level 4.0 ug/mL (2.8-20) Urine Opiates Screen Negative (NEGATIVE) Acetaminophen Level < 2 MCG/ML (10-30) Urine Barbiturates Screen Negative (NEGATIVE) Phencyclidine (PCP) Screen Negative (NEGATIVE) Urine Amphetamines Screen Negative (NEGATIVE) Urine Benzodiazepines Screen Negative (NEGATIVE) Urine Cocaine Screen Negative (NEGATIVE) Urine Marijuana (THC) Screen Negative (NEGATIVE) Serum Alcohol < 3 mg/dL (Minor Minor MD) ER Course Hospital Course 42-year-old male presents to ED with monitoring hallucinations, anxious Clinical course Patient initially seen and evaluated by Dr. Minor; please see his note for full history and physical Labs-electrolytes normal, aspirin/Tylenol levels normal, EtOH level normal, U. tox negative Patient was given Zyprexa last night. Allowed to sleep. Awake alert this morning. I spoke to the patient. Patient states he is feeling better. No signs of suicidal or homicidal ideation. No hallucinations. Not danger to self or others. Do not believe emergent psychiatric evaluation is indicated at this time. We will discharge with a prescriptions for his Zyprexa and mental health referral as outpatient. Patient agrees to plan i. I feel this is a highly complex case requiring extensive working including EKG/Rhythm strip, Xray/CT/US, Blood/urine lab work, repeat exams while in ED, and administration of strong opiates/narcotics for pain control, admission to hospital or close patient follow up. Diagnosis - bipolar disorder, auditory hallucinations Stable and discharged to home with Rx Zyprexa. Followup with PMD/psychiatrist. Return to ED if symptoms recur or worsen Labs Test 02/06/18 04:14 White Blood Count 9.0 K/UL (4.8-10.8) Red Blood Count 5.30 M/UL (4.70-6.10) Hemoglobin 15.7 G/DL (14.2-18.0) Hematocrit 46.6 % (42.0-52.0) Mean Corpuscular Volume 88 FL (80-99) Mean Corpuscular Hemoglobin 29.6 PG (27.0-31.0) Mean Corpuscular Hemoglobin Concent 33.7 G/DL (32.0-36.0) Red Cell Distribution Width 11.3 % (11.6-14.8) Platelet Count 211 K/UL (150-450) Mean Platelet Volume 7.5 FL (6.5-10.1) Neutrophils (%) (Auto) 61.3 % (45.0-75.0) Lymphocytes (%) (Auto) 24.8 % (20.0-45.0) Monocytes (%) (Auto) 7.8 % (1.0-10.0) Eosinophils (%) (Auto) 4.7 % (0.0-3.0) Basophils (%) (Auto) 1.5 % (0.0-2.0) Urine Color Yellow Urine Appearance Clear Urine pH 6 (4.5-8.0) Urine Specific [place] 1.025 (1.005-1.035) Urine Protein 1+ (NEGATIVE) Urine Glucose (UA) Negative (NEGATIVE) Urine Ketones Negative (NEGATIVE) Urine Blood 2+ (NEGATIVE) Urine Nitrite Negative (NEGATIVE) Urine Bilirubin Negative (NEGATIVE) Urine Urobilinogen Normal MG/DL (0.0-1.0) Urine Leukocyte Esterase 1+ (NEGATIVE) Urine RBC 2-4 /HPF (0 - 0) Urine WBC 0-2 /HPF (0 - 0) Urine Squamous Epithelial Cells Few /LPF (NONE/OCC) Urine Bacteria None /HPF (NONE) Sodium Level 138 MMOL/L (136-145) Potassium Level 3.6 MMOL/L (3.5-5.1) Chloride Level 102 MMOL/L (98-107) Carbon Dioxide Level 30 MMOL/L (21-32) Anion Gap 6 mmol/L (5-15) Blood Urea Nitrogen 11 mg/dL (7-18) Creatinine 1.0 MG/DL (0.55-1.30) Estimat Glomerular Filtration Rate > 60 mL/min (>60) Glucose Level 73 MG/DL (74-106) Calcium Level 8.8 MG/DL (8.5-10.1) Total Bilirubin 0.6 MG/DL (0.2-1.0) Aspartate Amino Transf (AST/SGOT) 14 U/L (15-37) Alanine Aminotransferase (ALT/SGPT) 14 U/L (12-78) Alkaline Phosphatase 72 U/L (46-116) Total Protein 7.7 G/DL (6.4-8.2) Albumin 3.9 G/DL (3.4-5.0) Globulin 3.8 g/dL Albumin/Globulin Ratio 1.0 (1.0-2.7) Salicylates Level 4.0 ug/mL (2.8-20) Urine Opiates Screen Negative (NEGATIVE) Acetaminophen Level < 2 MCG/ML (10-30) Urine Barbiturates Screen Negative (NEGATIVE) Phencyclidine (PCP) Screen Negative (NEGATIVE) Urine Amphetamines Screen Negative (NEGATIVE) Urine Benzodiazepines Screen Negative (NEGATIVE) Urine Cocaine Screen Negative (NEGATIVE) Urine Marijuana (THC) Screen Negative (NEGATIVE) Serum Alcohol < 3 mg/dL (Jose Cruz Prieto MD) Last Vital Signs Date Time Temp Pulse Resp B/P (MAP) Pulse Ox O2 Delivery O2 Flow Rate FiO2 02/06/18 03:08 97.5 86 18 132/84 98 Room Air 97.5 (Minor Minor MD) Status: improved (Jose Cruz Prieto MD) Disposition: HOME, SELF-CARE Condition: Stable Scripts Olanzapine (ZYPREXA) 20 Mg Tablet 20 MG ORAL DAILY, #30 TAB 0 Refills Prov: Jose Cruz Prieto MD 02/06/18 Minor Minor MD Feb 06, 2018 03:33 Jose Cruz Prieto MD Feb 06, 2018 08:46
[2018-02-06 04:15] VITALS: BP 132/84
[2018-02-06 04:22] LABS: APPEARANCE,URINE CLEAR; BILIRUBIN, URINE NEGATIVE (NEGATIVE); GLUCOSE, URINE (UA) NEGATIVE (NEGATIVE); KETONES,URINE NEGATIVE (NEGATIVE); LEUKOCYTE ESTERASE ,URINE 1+ (NEGATIVE); NITRITE,URINE NEGATIVE (NEGATIVE); PH,URINE 6 (4.5-8.0); PROTEIN,URINE 1+ (NEGATIVE); UROBILINOGEN,URINE NORMAL MG/DL (0.0-1.0)
[2018-02-06 04:25] LABS: COLOR,URINE YELLOW
[2018-02-06 04:36] LABS: ANION GAP 6 mmol/L (5-15); BLOOD UREA NITROGEN 11 mg/dL (7-18); CALCIUM 8.8 MG/DL (8.5-10.1); CARBON DIOXIDE 30 MMOL/L (21-32); CHLORIDE 102 MMOL/L (98-107); POTASSIUM 3.6 MMOL/L (3.5-5.1); SODIUM 138 MMOL/L (136-145)
[2018-02-06 04:38] LABS: BASOPHILS % (AUTO) 1.5 % (0.0-2.0); EOSINOPHILS % (AUTO) 4.7 % (0.0-3.0); HEMATOCRIT 46.6 % (42.0-52.0); HEMOGLOBIN 15.7 G/DL (14.2-18.0); LYMPHOCYTES % (AUTO) 24.8 % (20.0-45.0); MEAN CORPUSCULAR VOLUME 88 FL (80-99); MONOCYTES % (AUTO) 7.8 % (1.0-10.0); NEUTROPHILS % (AUTO) 61.3 % (45.0-75.0); PLATELET COUNT 211 K/UL (150-450); RED CELL DISTRIBUTION WIDTH 11.3 % (11.6-14.8)
[2018-02-06 04:41] LABS: ALANINE AMINOTRANSFERASE 14 U/L (12-78); ALBUMIN 3.9 G/DL (3.4-5.0); ALKALINE PHOSPHATASE 72 U/L (46-116); ASPARTATE AMINO TRANSFERASE 14 U/L (15-37); BILIRUBIN,TOTAL 0.6 MG/DL (0.2-1.0)
[2018-02-06 05:14] VITALS: BP 126/78
[2018-02-06 06:14] VITALS: BP 120/78
[2018-02-06] MEDS ORDERED: ZYPREXA20 MG ORAL (07:54)
[2018-02-06 08:10] VITALS: BP 124/73
[2018-02-06 08:28] VITALS: BP 124/73
== END 2018-02-06 08:28 | disposition home or self-care (01) ==
LOC: EMR 03:39
DX: F31.9 Bipolar disorder, unspecified (principal); R44.0 Auditory hallucinations
CPT/HCPCS: 36415; 80053; 80307; 80329; 81003; 85025; 99284

== ENCOUNTER 2018-03-08 01:10 | Emergency (ER) | payer OTHER ==
[~2018-03-08] VITALS: Ht 177.8 cm; Wt 72.6 kg
[~2018-03-08 01:10] MED LIST changes: +ZYPREXA20 MG ORAL
[2018-03-08] MEDS ORDERED: PROZAC20 MG ORAL (01:38)
[2018-03-08 01:49] VITALS: BP 114/72
[2018-03-08] MEDS ORDERED: LORazepam 1mg tab ORAL ONE (02:30)
[2018-03-08 03:26] VITALS: BP 114/72
[2018-03-08 04:55] VITALS: BP 114/72
[2018-03-08 06:30] VITALS: BP 114/72
--- NOTE | 2018-03-08 07:04 | Emergency Room Report ---
History of Present Illness General Chief Complaint: Altered Mental Status Source: Patient Present Illness HPI Patient presents feeling anxious and suicidal. He is taking his medication. His thoughts are to jump off a bridge but has not chosen a bridge at this time. He denies doing any other drugs. He is in transition with his living situation and expects it to stabilize next week. Patient has bipolar disorder. No fevers, chills, NVD, dysuria, joint pain, trauma, abdominal pain, chest pain , rashes. Allergies: Coded Allergies: No Known Allergies (Unverified , 09/11/16) Patient History Past Medical History: see triage record Social History: Reports: smoking; Denies: alcohol use, drug use Social History Narrative He'll be moving into more stable environment in the near future. Reviewed Nursing Documentation: PMH: Agreed; PSxH: Agreed Nursing Documentation-PMH Past Medical History: No History, Except For Hx Cardiac Problems: No History Of Psychiatric Problem: Yes - depression Review of Systems All Other Systems: negative except mentioned in HPI Physical Exam Vital Signs Date Time Temp Pulse Resp B/P (MAP) Pulse Ox O2 Delivery O2 Flow Rate FiO2 03/08/18 01:28 97.7 95 15 114/72 95 Room Air Sp02 EP Interpretation: reviewed, normal General Appearance: well appearing, no apparent distress, GCS 15 Head: normocephalic, atraumatic Eyes: bilateral eye normal inspection, bilateral eye PERRL, bilateral eye EOMI ENT: moist mucus membranes Neck: supple Respiratory: lungs clear, normal breath sounds Cardiovascular #1: regular rate, rhythm Cardiovascular #2: 2+ radial (R) Gastrointestinal: normal inspection, normal bowel sounds, non tender, no mass, non-distended, scaphoid Genitourinary: no CVA tenderness, no vertebral tenderness Musculoskeletal: back normal, gait/station normal, normal range of motion Neurologic: alert, oriented x3, grossly normal Psychiatric: anxious Suicide Risk Assessment: Suicidal Ideation: Yes Had intent to initiate attempt: No Pt's plan for suicide attempt: Yes Has means to complete attempt: No Skin: normal inspection, warm/dry Medical Decision Making Diagnostic Impression: Primary Impression: Bipolar disorder Qualified Codes: F31.9 - Bipolar disorder, unspecified Additional Impressions: Suicidal ideation Anxiety ER Course Patient presents with anxiety and SI. DDX: exacerbation bipolar disorder, anxiety, situational stress amongst others. No somatic complaints. Ativan ordered. Consider psychiatric evaluation. Not risk to self or others. No medical emergency at this time. Labs not indicated at this time. Patient resting without any distress. Signed out to Dr. Dutta for psychiatric evaluation. Last Vital Signs Date Time Temp Pulse Resp B/P (MAP) Pulse Ox O2 Delivery O2 Flow Rate FiO2 03/08/18 07:20 95 15 Room Air 03/08/18 06:30 98.0 114/72 95 Status: improved Disposition: HOME, SELF-CARE Condition: Improved [facility]errals: [facility] (PCP) Edy Cain MD Mar 08, 2018 07:04
[2018-03-08 16:55] VITALS: BP 114/72
--- NOTE | 2018-03-08 19:45 | Consultation ---
DATE OF CONSULTATION: HISTORY OF PRESENT ILLNESS: The patient is a 42-year-old male, who is well known to this physician from previous admission. The patient stated that he was feeling anxious he came to the hospital. He is denying having any suicidal or homicidal ideation. He is on low-dose of Ativan. He denied any psychotic, manic, or depressive symptoms. PAST PSYCHIATRIC HISTORY: Several psychiatric hospitalizations, history of anxiety, depression, and substance use disorder. PAST MEDICAL HISTORY: None. ALLERGIES: No known drug allergies. SUBSTANCE USE HISTORY: Has a history of drug use. MENTAL STATUS EXAMINATION: . PLAN: The patient will be discharged as he is not an imminent danger to self or others. Did not meet the criteria of hold or 5150. Colin Bojorquez M.D. DR: KAMINI JOB#: [id number] CC:
== END 2018-03-08 16:59 | disposition home or self-care (01) ==
LOC: EMR 03:11
DX: F31.9 Bipolar disorder, unspecified (principal); R45.851 Suicidal ideations; F41.9 Anxiety disorder, unspecified; F32.9 Major depressive disorder, single episode, unspecified
CPT/HCPCS: 99283

== ENCOUNTER 2018-04-06 21:55 | Emergency (ER) | payer OTHER ==
[~2018-04-06] VITALS: Ht 177.8 cm; Wt 72.6 kg
[2018-04-06 22:18] VITALS: BP 127/84
[2018-04-06 22:24] VITALS: BP 145/70
--- NOTE | 2018-04-06 22:41 | Emergency Room Report ---
History of Present Illness General Chief Complaint: Behavioral Complaint Source: Patient Present Illness HPI Is a 42-year-old male with history of schizophrenia. He takes Zyprexa. He presents with chief complaint of hearing voices. This is a chronic issue for him. No change from before. Been here multiple times for the same thing. No nausea no vomiting. No fever chills. Denies any drug use. Denies suicidal thoughts or homicidal thought. Does not have any plan to hurt himself. Allergies: Coded Allergies: No Known Allergies (Unverified , 09/11/16) Patient History Past Medical History: see triage record, old chart reviewed, psych hx Past Surgical History: none Pertinent Family History: none Social History: Denies: smoking Immunizations: other Reviewed Nursing Documentation: PMH: Agreed; PSxH: Agreed Nursing Documentation-PMH Past Medical History: No Stated History Hx Cardiac Problems: No Review of Systems Eye: Denies: eye pain, blurred vision ENT: Denies: ear pain, nose congestion, throat swelling Respiratory: Denies: cough, shortness of breath Cardiovascular: Denies: chest pain, palpitations Gastrointestinal: Denies: abdominal pain, diarrhea, nausea, vomiting Musculoskeletal: Denies: back pain, joint pain Skin: Denies: rash Neurological: Denies: headache, numbness Endocrine: Denies: increased thirst, increased urine Hematologic/Lymphatic: Denies: easy bruising All Other Systems: negative except mentioned in HPI Physical Exam Vital Signs Date Time Temp Pulse Resp B/P (MAP) Pulse Ox O2 Delivery O2 Flow Rate FiO2 04/06/18 22:06 97.9 94 16 127/84 97 Room Air vitals normal Sp02 EP Interpretation: reviewed, normal General Appearance: well appearing, no apparent distress, alert Head: normocephalic, atraumatic Eyes: bilateral eye PERRL, bilateral eye EOMI ENT: hearing grossly normal, normal pharynx Neck: full range of motion, supple, no meningismus Respiratory: chest non-tender, lungs clear, normal breath sounds Cardiovascular #1: regular rate, rhythm, no murmur Gastrointestinal: normal bowel sounds, non tender, no mass, no organomegaly, no bruit, non-distended Musculoskeletal: back normal, gait/station normal, normal range of motion Psychiatric: mood/affect normal Skin: warm/dry Medical Decision Making Diagnostic Impression: Primary Impression: Auditory hallucinations ER Course Patient with auditory hallucination secondary to schizophrenia. He is calm and cooperative. No criteria for 5150. He is not suicidal or homicidal. We'll discharge home. This patient is a chronic risk of self injury due to poor impulse control, limited coping skills, and judgment intermittently impaired by intoxication. I believe that the available clinical evidence to suggest that these characteristics derived primarily from personality disorder and are likely very stable over time. Hospitalization would likely attenuate risk of self-harm only during prison period, without lasting risk reduction. Serious self-harm , while possible, would likely be inadvertent, and because of impulsivity, and foreseeable. For these reasons, I do not believe hospitalization would provide meaningful reduction in risk of self-harm. Last Vital Signs Date Time Temp Pulse Resp B/P (MAP) Pulse Ox O2 Delivery O2 Flow Rate FiO2 04/06/18 22:24 98.9 88 16 145/70 98 Room Air Status: unchanged Disposition: HOME, SELF-CARE Condition: Stable [facility]errals: [facility] (PCP) Additional Instructions: Take your medication. Follow-up with mental health tomorrow. Return if symptom worsen. Maurice Carranza MD Apr 06, 2018 22:41
== END 2018-04-06 22:24 | disposition home or self-care (01) ==
LOC: EMR 22:21
DX: F20.9 Schizophrenia, unspecified (principal)
CPT/HCPCS: 99282

== ENCOUNTER 2018-05-10 00:13 | Emergency (ER) | payer OTHER ==
[~2018-05-10] VITALS: Ht 177.8 cm; Wt 73.5 kg
[2018-05-10 00:30] VITALS: BP 122/88
--- NOTE | 2018-05-10 00:30 | NUR ---
ED Nurse Note: Patient presents with no medical needs. Patient states that he heard voices and wanted to come in to get check out.
--- NOTE | 2018-05-10 01:18 | NUR ---
ED Nurse Note: Patient states that he doesn't want to go to a jail. Patient intends to go to [place].
--- NOTE | 2018-05-10 03:36 | NUR ---
ED Nurse Note: Patient is sleeping, No s/s of acute distress.
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
[2018-05-10 06:15] VITALS: BP 141/88
[2018-05-10 06:16] VITALS: BP 141/88
== END 2018-05-10 06:18 | disposition home or self-care (01) ==
LOC: EMR 00:36
DX: R44.0 Auditory hallucinations (principal); F41.9 Anxiety disorder, unspecified; F25.9 Schizoaffective disorder, unspecified
CPT/HCPCS: 99282

== ENCOUNTER 2018-06-20 13:39 | Emergency (ER) | payer OTHER ==
[~2018-06-20] VITALS: Ht 177.8 cm; Wt 72.6 kg
[2018-06-20 14:17] VITALS: BP 123/83
--- NOTE | 2018-06-20 14:17 | NUR ---
ED Nurse Note: AMBULATED IN TO ER DUE TO EVALUATION OF HEARING VOICE BUT DENIES HURTING HIMSELF NOR OTHERS. PT STATES THAT HE IS COMPLIANT WITH HIS MEDS- ZYPREXA AND PROZAC.
--- NOTE | 2018-06-20 15:05 | Emergency Room Report ---
History of Present Illness General Chief Complaint: Behavioral Complaint Source: Patient Present Illness Allergies: Coded Allergies: No Known Allergies (Unverified , 09/11/16) Nursing Documentation-[facility] Past Medical History: No History, Except For Hx Cardiac Problems: No History Of Psychiatric Problem: Yes - schizoaffective disorder Physical Exam Vital Signs Date Time Temp Pulse Resp B/P (MAP) Pulse Ox O2 Delivery O2 Flow Rate FiO2 06/20/18 14:12 97.9 85 14 123/83 99 Room Air Medical Decision Making PA Attestation Dr. Minor is my supervising Physician whom patient management has been discussed with. Homeless Attestation I, The treating provider, Mónica MARIEE, has assessed and agrees that patient is medically stable for discharge to an outpatient disposition. He is also given multiple outpatient resources for his current complaint. Diagnostic Impression: Primary Impression: Auditory hallucinations Last Vital Signs Date Time Temp Pulse Resp B/P (MAP) Pulse Ox O2 Delivery O2 Flow Rate FiO2 06/20/18 14:17 97.9 85 14 123/83 99 Room Air Disposition: HOME, SELF-CARE Condition: Stable Referrals: NON PHYSICIAN (PCP) Additional Instructions: Take previously prescribed medications as directed. Follow up with a Mental Health Specialist/ Psychiatrist within 3 days, even if your symptoms have resolved. Please see attached resources for some outpatient care clinics. --Please review resource information provided Return sooner to ED if new symptoms occur, or current symptoms become worse. - Please note that this Emergency Department Report was dictated using [employer] transcriptionist technology software, occasionally this can lead to erroneous entry secondary to interpretation by the dictation equipment. Mónica Pearce Jun 20, 2018 15:05
[2018-06-20 15:26] VITALS: BP 123/83
--- NOTE | 2018-06-20 15:27 | NUR ---
Homeless Discharge: Patient is being discharged from medical care. Awake, alert and oriented x4. After care instructions, including referral to community resources were given. Patient verbalized understanding of After care instructions; at this time patient does not request medications, equipment or placement. Patient signed patient consent in the medical record for patient destination upon discharge. All medical devices such as IV and ID band were removed. Patient ambulated out with all personal belongings with steady gait. Bus card was provided to patient. Pt states that he wants to go to [id number] [place] [id number] [employer] bus.
--- NOTE | 2018-06-20 15:28 | NUR ---
ED Nurse Note: mini-cog was completed by the patient.
== END 2018-06-20 15:28 | disposition home or self-care (01) ==
LOC: EMR 14:30
DX: R44.0 Auditory hallucinations (principal); F25.9 Schizoaffective disorder, unspecified
CPT/HCPCS: 99282

== ENCOUNTER 2018-07-11 22:42 | Emergency (ER) | payer OTHER ==
--- NOTE | 2018-07-11 23:30 | NUR ---
ED Nurse Note: pt was not on the waiting room when called.
--- NOTE | 2018-07-11 23:53 | Emergency Room Report ---
History of Present Illness General Chief Complaint: To Be Triaged Source: Patient Present Illness HPI This patient is well-known to me. He has a history of schizophrenia with noncompliance with medication. He checked in with chief complaint of hearing voices. Usually want a place to sleep overnight. He was called several time but did not respond. I did not see this patient. Allergies: Coded Allergies: No Known Allergies (Unverified , 09/11/16) Nursing Documentation-PMH Hx Cardiac Problems: No Medical Decision Making Diagnostic Impression: Primary Impression: Auditory hallucinations Status: unchanged Disposition: LEFT W/OUT BEING SEEN Condition: Stable Maurice Carranza MD Jul 11, 2018 23:53
== END 2018-07-11 23:45 | disposition left against medical advice (07) ==
LOC: EMR 23:35
DX: R44.0 Auditory hallucinations (principal); F20.9 Schizophrenia, unspecified; Z91.19 Patient's noncompliance with other medical treatment and regimen; Z53.21 Procedure and treatment not carried out due to patient leaving prior to being seen by health care provider

== ENCOUNTER 2018-07-20 00:29 | Emergency (ER) | payer OTHER ==
[~2018-07-20] VITALS: Ht 177.8 cm; Wt 72.6 kg
--- NOTE | 2018-07-20 00:40 | NUR ---
ED Nurse Note: pt walked in c/o hearing voices and started having anxiety and panic attack but denies SI/HI/VH. Pt states he hears voices often, hx schizophrenia. Pt AA&ox4, gcs=15, skin warm dry and resp even and unlabored, calm and cooperative, ambulates w/ steady gait, will cont monitor. vss. pt is homeless but states he will be going back to [place] where he stays, refused to go to longterm and states he does not need the list. pt has weather appropriate clothing on. ERMD aware.
[2018-07-20 00:42] VITALS: BP 121/82
[2018-07-20] MEDS ORDERED: ZYPREXA20 MG ORAL (00:50)
--- NOTE | 2018-07-20 00:51 | Emergency Room Report ---
History of Present Illness General Chief Complaint: Behavioral Complaint Source: Patient Present Illness HPI Is a 42-year-old male well-known to me. He has a history of schizophrenia. He said he is out of his Zyprexa. We'll able to get it until Saturday. He presents with chief complaint of hearing voices. No suicidal thoughts or homicidal thought. Similar symptom in the past. Been here several time for this. He is homeless but does not want to go to a [facility]. He said he preferred to be homeless on the street. Said people in a [facility] usually try to steal his stuff. Allergies: Coded Allergies: No Known Allergies (Unverified , 07/20/18) Patient History Past Medical History: see triage record, old chart reviewed, schizophrenia Past Surgical History: other Family History: none Social History: tobacco use Immunizations: other Reviewed Nursing Documentation: PMH: Agreed; PSxH: Agreed Nursing Documentation-PMH Hx Cardiac Problems: No Review of Systems ENT: Denies: sore throat Cardiovascular: Denies: chest pain, palpitations Gastrointestinal/Abdominal: Denies: nausea, vomiting, diarrhea Musculoskeletal: Denies: back problems Skin: Denies: rash Neurological: Denies: NGUYEN, seizures All Other Systems: negative except mentioned in HPI Physical Exam Vital Signs Date Time Temp Pulse Resp B/P (MAP) Pulse Ox O2 Delivery O2 Flow Rate FiO2 07/20/18 00:35 98.2 80 18 121/82 96 Room Air vitals normal Sp02 EP Interpretation: reviewed, normal General Appearance: alert/responsive, no apparent distress, non-toxic Head: normocephalic, atraumatic Eyes: PERRL, EOMI ENT: oropharynx normal Neck: supple/symm/no masses Respiratory: effort normal, no rhonchi, no wheezing Cardiovascular: no murmur, gallop, rub Gastrointestinal: non-tender, no mass, non-distended, no rebound/guarding, normal bowel sounds Musculoskeletal: gait & station normal Neurologic: oriented x3, sensory intact, motor strength/tone normal Skin: no rash, normal palpation Medical Decision Making Diagnostic Impression: Primary Impression: Auditory hallucinations ER Course Patient presents with auditory hallucination. No change from prior. No suicidal thoughts or homicidal thought. No criteria for 5150. Dose of Zyprexa given here. We'll discharge home with a prescription. Last Vital Signs Date Time Temp Pulse Resp B/P (MAP) Pulse Ox O2 Delivery O2 Flow Rate FiO2 07/20/18 00:35 98.2 80 18 121/82 96 Room Air Status: improved Disposition: HOME, SELF-CARE Condition: Stable Scripts Olanzapine (ZYPREXA) 20 Mg Tablet 20 MG ORAL DAILY, #30 TAB 0 Refills Prov: Maurice Carranza MD 07/20/18 Referrals: [facility] (PCP) Additional Instructions: Follow-up with your psych doctor within a week. Return if worse. Maurice Carranza MD Jul 20, 2018 00:51
--- NOTE | 2018-07-20 01:00 | NUR ---
ED Nurse Note: pt cleared to be d/c per ERMD, pt discharge and aftercare instruction provided w/ prescription, pt education done via discussion and handout, pt verbalized understanding and agrees with plan, pt refused to go to shelters, pt states he lives in [place] [address] and states he is going to take bus and use his tap card. pt given sandwich and water and juice for the road, pt AA&ox4, weather appropriate clothing, ambulatory w/ steady gait, vss.
[2018-07-20 01:03] VITALS: BP 127/67
--- NOTE | 2018-07-20 01:04 | NUR ---
ED Nurse Note: pt given snf list and community clinic/ mental health clinic list.
== END 2018-07-20 01:00 | disposition home or self-care (01) ==
LOC: EMR 00:47
DX: R44.0 Auditory hallucinations (principal); F20.9 Schizophrenia, unspecified; Z59.0 Homelessness
CPT/HCPCS: 99282

== ENCOUNTER 2018-08-23 11:03 | Emergency (ER) | payer OTHER ==
[~2018-08-23] VITALS: Ht 177.8 cm; Wt 72.6 kg
[2018-08-23] MEDS ORDERED: ZYPREXA20 MG ORAL (11:27)
[2018-08-23 11:37] VITALS: BP 120/80
--- NOTE | 2018-08-23 13:59 | Emergency Room Report ---
History of Present Illness General Chief Complaint: Behavioral Complaint Source: Patient Present Illness HPI She presents with reports of auditory hallucination Patient reports that he has been hearing voices over the last several days There was also report of the voices telling him to hurt himself Patient however reports that he has no intentions to do so He has been compliant with his medications denies any active auditory or visual hallucinations Denies any chest pain or shortness of breath denies any other medical complaints denies any focal weakness Allergies: Coded Allergies: No Known Allergies (Unverified , 07/20/18) Patient History Past Medical History: see triage record Pertinent Family History: none Reviewed Nursing Documentation: PMH: Agreed; PSxH: Agreed Nursing Documentation-PMH Past Medical History: No History, Except For Hx Cardiac Problems: No Review of Systems All Other Systems: negative except mentioned in HPI Physical Exam Vital Signs Date Time Temp Pulse Resp B/P (MAP) Pulse Ox O2 Delivery O2 Flow Rate FiO2 08/23/18 11:22 98.1 91 20 120/80 96 Room Air Sp02 EP Interpretation: reviewed, normal General Appearance: well appearing, no apparent distress Head: normocephalic, atraumatic Eyes: bilateral eye PERRL, bilateral eye EOMI ENT: hearing grossly normal, normal pharynx, TMs + canals normal, uvula midline Neck: full range of motion, supple, no meningismus, no bony tend Respiratory: lungs clear, normal breath sounds, no rhonchi, no respiratory distress, no retraction, no accessory muscle use Cardiovascular #1: normal peripheral pulses, regular rate, rhythm, no edema, no gallop, no JVD, no murmur Gastrointestinal: normal bowel sounds, non tender, soft, no mass, no organomegaly, non-distended, no guarding, no hernia, no pulsatile mass, no rebound Genitourinary: no CVA tenderness Musculoskeletal: normal inspection Neurologic: oriented x3, responsive, senior structural engineer III-XII nml as tested, motor strength/ tone normal, sensory intact Psychiatric: mood/affect normal - Patient had reported auditory hallucination, denies any active thought Skin: normal color, no rash, warm/dry, palpation normal Lymphatic: normal inspection, no adenopathy Medical Decision Making Diagnostic Impression: Primary Impression: Bipolar disorder ER Course Given the patient's initial presentation and complaint Psychiatric consultation was also obtained They do agree the patient does not show any signs of acute symptoms After being medically cleared by myself patient is also psychiatrically cleared and appropriate for close outpatient disposition, Last Vital Signs Date Time Temp Pulse Resp B/P (MAP) Pulse Ox O2 Delivery O2 Flow Rate FiO2 08/23/18 11:37 98.1 91 18 120/80 96 Room Air Status: improved Disposition: HOME, SELF-CARE Condition: Improved Referrals: [facility] (PCP) Additional Instructions: Follow-up with psychiatric outpatient facilities as provided please return with any changes symptom or concern, Chico Dutta DO Aug 23, 2018 13:59
[2018-08-23 15:31] VITALS: BP 120/80
--- NOTE | 2018-08-24 01:30 | Consultation ---
DATE OF CONSULTATION: 08/23/2018 HISTORY OF PRESENT ILLNESS: The patient is a 42-year-old male with a history of schizophrenia, who came to the emergency room with a chief complaint of hearing voices and having thoughts of dying. The patient is well known to this physician. The patient is and usually comes to the ER, spends the nights and leaves in the morning. The patient was not having any behavior issues. He was calm and with no anxiety or depressive symptoms noted during the evaluation. The patient stated that he has auditory hallucinations. When hearing voices, he needs to speak to a physician, did not think about dying. He denies any suicidal or homicidal ideations. The patient is taking his medication, which is Zyprexa 25 mg at bedtime and Prozac 20. He has a psychiatrist at outpatient clinic that he sees on a regular basis. He met with her 10 days ago, who increased the Zyprexa. The patient stated that he is compliant with his medications. PAST PSYCHIATRIC HISTORY: He has several psychiatric hospitalizations. No suicide attempt in the past. PAST MEDICAL HISTORY: Nonsignificant. ALLERGIES: No known drug allergies. SUBSTANCE ABUSE HISTORY: He has a history of illicit drug use in the past. He has been sober for the past decade. He is a smoker. MENTAL STATUS EXAMINATION: The patient is alert and oriented x4. Cooperative and pleasant. Mood is euthymic. Affect is full range, congruent with mood. Thought process was linear. Thought content, no suicidal or homicidal ideation. Complaining of auditory hallucination. He was not noted in the emergency room to respond to internal stimuli. Insight and judgment is fair. ASSESSMENT: Schizoaffective disorder. PLAN: The patient will be discharged and was referred back with outpatient program. The patient is not an imminent danger to self or others. The patient is not meeting the criteria for 5150. Discussed the case with Dr. Dutta. Colin Bojorquez M.D. DR: KAMINI JOB#: [id number] CC:
== END 2018-08-23 15:32 | disposition home or self-care (01) ==
LOC: EMR 11:41
DX: F31.9 Bipolar disorder, unspecified (principal)
CPT/HCPCS: 99282

== ENCOUNTER 2018-08-29 02:16 | Emergency (ER) | payer OTHER ==
[~2018-08-29] VITALS: Ht 177.8 cm; Wt 72.6 kg
[2018-08-29 02:28] VITALS: BP 115/72
--- NOTE | 2018-08-29 02:28 | NUR ---
ED Nurse Note: Pt walked in ED by himself, C/O " Hearing voices and wanted to kill himself". Pt is A/O X 4, Vital signs stable at this time, waiting for orders.
[2018-08-29] MEDS ORDERED: ZYPREXA10 MG ORAL (02:38)
--- NOTE | 2018-08-29 02:50 | NUR ---
ED Nurse Note: Blood and urine sample collected and sent to Lab.
--- NOTE | 2018-08-29 02:55 | NUR ---
ED Nurse Note: Pt's belongings on psych Locker 2# and out side of the desk.
--- NOTE | 2018-08-29 03:09 | Emergency Room Report ---
History of Present Illness General Chief Complaint: Behavioral Complaint Source: Patient Present Illness HPI Patient presents hearing voices and feeling suicidal. This happens on occasion. He's been stable on medications for quite a while. He took his Zyprexa last night at 9 PM and also Prozac in the morning. He was recently seen at [facility] and because he felt better they let him go. This time he is talking about having a plan of walking into traffic. He lives by himself on the streets. Denies any other drug or alcohol use. He is hearing voices, telling him to harm himself. Plan to run into traffic. Patient complains about dizziness. He feels somewhat dehydrated this time. Rest of ROS negative. Allergies: Coded Allergies: No Known Allergies (Unverified , 07/20/18) Patient History Past Medical History: see triage record Social History: Denies: smoking, alcohol use - prior, drug use Social History Narrative currently homeless Reviewed Nursing Documentation: PMH: Agreed; PSxH: Agreed Nursing Documentation-PMH Hx Cardiac Problems: No History Of Psychiatric Problem: Yes - Schizoeffective Disorder Review of Systems All Other Systems: negative except mentioned in HPI Physical Exam Vital Signs Date Time Temp Pulse Resp B/P (MAP) Pulse Ox O2 Delivery O2 Flow Rate FiO2 08/29/18 02:18 97.9 84 16 114/73 95 Room Air Sp02 EP Interpretation: reviewed, normal General Appearance: well appearing, no apparent distress, GCS 15 Head: normocephalic Eyes: bilateral eye normal inspection, bilateral eye PERRL, bilateral eye EOMI ENT: moist mucus membranes Neck: supple Respiratory: lungs clear, normal breath sounds Cardiovascular #1: regular rate, rhythm Cardiovascular #2: 2+ radial (R) Gastrointestinal: normal inspection, normal bowel sounds, non tender, no mass, non-distended Musculoskeletal: back normal, gait/station normal, normal range of motion Neurologic: alert, oriented x3, grossly normal Psychiatric: other - flat affect, no delusions Suicide Risk Assessment: Suicidal Ideation: Yes Had intent to initiate attempt: Yes Pt's plan for suicide attempt: Yes Has means to complete attempt: Yes Skin: normal inspection, warm/dry Medical Decision Making Diagnostic Impression: Primary Impression: Suicidal ideation Additional Impressions: Bipolar disorder Qualified Codes: F31.9 - Bipolar disorder, unspecified Auditory hallucinations ER Course Patient with bipolar disorder presents with sudden suicidal ideation. Differential includes exacerbation of bipolar disorder, left right imbalance, drug ingestion amongst others. Based on the fact that he has a plan and is suicidal intent he's placed on a medical hold at this time. He be evaluated with EKG, and labs. The patient will receive IV hydration. States she's been compliant with medication. He's calm and cooperative at the moment. He will need psychiatric assessment. EKG and labs normal. Rest of labs unremarkable. Medically clear for psychiatric evaluation @ 5:08. Patient transferred to [place]. Laboratory Tests Test 08/29/18 03:06 White Blood Count 7.4 K/UL (4.8-10.8) Red Blood Count 5.07 M/UL (4.70-6.10) Hemoglobin 14.9 G/DL (14.2-18.0) Hematocrit 45.5 % (42.0-52.0) Mean Corpuscular Volume 90 FL (80-99) Mean Corpuscular Hemoglobin 29.4 PG (27.0-31.0) Mean Corpuscular Hemoglobin Concent 32.8 G/DL (32.0-36.0) Red Cell Distribution Width 12.7 % (11.6-14.8) Platelet Count 128 K/UL (150-450) L Mean Platelet Volume 9.5 FL (6.5-10.1) Neutrophils (%) (Auto) 59.9 % (45.0-75.0) Lymphocytes (%) (Auto) 27.4 % (20.0-45.0) Monocytes (%) (Auto) 5.9 % (1.0-10.0) Eosinophils (%) (Auto) 4.8 % (0.0-3.0) H Basophils (%) (Auto) 2.0 % (0.0-2.0) Urine Color Pale yellow Urine Appearance Clear Urine pH 6 (4.5-8.0) Urine Specific [place] 1.015 (1.005-1.035) Urine Protein Negative (NEGATIVE) Urine Glucose (UA) Negative (NEGATIVE) Urine Ketones Negative (NEGATIVE) Urine Blood 3+ (NEGATIVE) H Urine Nitrite Negative (NEGATIVE) Urine Bilirubin Negative (NEGATIVE) Urine Urobilinogen Normal MG/DL (0.0-1.0) Urine Leukocyte Esterase 1+ (NEGATIVE) H Urine RBC 2-4 /HPF (0 - 0) H Urine WBC 0-2 /HPF (0 - 0) Urine Squamous Epithelial Cells None /LPF (NONE/OCC) Urine Bacteria None /HPF (NONE) Sodium Level 138 MMOL/L (136-145) Potassium Level 3.6 MMOL/L (3.5-5.1) Chloride Level 104 MMOL/L (98-107) Carbon Dioxide Level 26 MMOL/L (21-32) Anion Gap 9 mmol/L (5-15) Blood Urea Nitrogen 11 mg/dL (7-18) Creatinine 1.0 MG/DL (0.55-1.30) Estimate Glomerular Filtration Rate > 60 mL/min (>60) Glucose Level 84 MG/DL (74-106) Calcium Level 9.1 MG/DL (8.5-10.1) Total Bilirubin 0.3 MG/DL (0.2-1.0) Aspartate Amino Transferase (AST) 16 U/L (15-37) Alanine Aminotransferase (ALT) 12 U/L (12-78) Alkaline Phosphatase 69 U/L (46-116) Total Creatine Kinase 106 U/L (26-308) Total Protein 7.5 G/DL (6.4-8.2) Albumin 3.8 G/DL (3.4-5.0) Globulin 3.7 g/dL Albumin/Globulin Ratio 1.0 (1.0-2.7) Salicylates Level 5.6 ug/mL (2.8-20) Urine Opiates Screen Negative (NEGATIVE) Acetaminophen Level < 2 MCG/ML (10-30) L Urine Barbiturates Screen Negative (NEGATIVE) Phencyclidine (PCP) Screen Negative (NEGATIVE) Urine Amphetamines Screen Negative (NEGATIVE) Urine Benzodiazepines Screen Negative (NEGATIVE) Urine Cocaine Screen Negative (NEGATIVE) Urine Marijuana (THC) Screen Negative (NEGATIVE) Serum Alcohol < 3 mg/dL EKG Diagnostic Results Rate: normal Rhythm: NSR ST Segments: no acute changes Rhythm Strip Diag. Results EP Interpretation: yes Rhythm: NSR, no PVC's, no ectopy Last Vital Signs Date Time Temp Pulse Resp B/P (MAP) Pulse Ox O2 Delivery O2 Flow Rate FiO2 08/29/18 08:00 80 20 113/75 95 Room Air 08/29/18 07:30 97.6 Status: improved Disposition: XFER TO PSYCH HOSP/UNIT Condition: Stable Referrals: [facility] ([facility]P) Edy Cain MD Aug 29, 2018 03:09
--- NOTE | 2018-08-29 03:13 | NUR ---
ED Nurse Note: Meds given as ordered.
[2018-08-29 03:34] LABS: ANION GAP 9 mmol/L (5-15); BLOOD UREA NITROGEN 11 mg/dL (7-18); CALCIUM 9.1 MG/DL (8.5-10.1); CARBON DIOXIDE 26 MMOL/L (21-32); CHLORIDE 104 MMOL/L (98-107); EOSINOPHILS % (AUTO) 4.8 % (0.0-3.0); HEMATOCRIT 45.5 % (42.0-52.0); HEMOGLOBIN 14.9 G/DL (14.2-18.0); LYMPHOCYTES % (AUTO) 27.4 % (20.0-45.0); MEAN CORPUSCULAR VOLUME 90 FL (80-99); MONOCYTES % (AUTO) 5.9 % (1.0-10.0); NEUTROPHILS % (AUTO) 59.9 % (45.0-75.0); PLATELET COUNT 128 K/UL (150-450); POTASSIUM 3.6 MMOL/L (3.5-5.1); RED BLOOD COUNT 5.07 M/UL (4.70-6.10); RED CELL DISTRIBUTION WIDTH 12.7 % (11.6-14.8); SODIUM 138 MMOL/L (136-145); WHITE BLOOD COUNT 7.4 K/UL (4.8-10.8)
[2018-08-29 03:36] LABS: APPEARANCE,URINE CLEAR; BILIRUBIN, URINE NEGATIVE (NEGATIVE); COLOR,URINE PALE YELLOW; GLUCOSE, URINE (UA) NEGATIVE (NEGATIVE); KETONES,URINE NEGATIVE (NEGATIVE); LEUKOCYTE ESTERASE ,URINE 1+ (NEGATIVE); NITRITE,URINE NEGATIVE (NEGATIVE); PH,URINE 6 (4.5-8.0); PROTEIN,URINE NEGATIVE (NEGATIVE); UROBILINOGEN,URINE NORMAL MG/DL (0.0-1.0)
[2018-08-29 03:42] LABS: ALANINE AMINOTRANSFERASE 12 U/L (12-78); ALBUMIN 3.8 G/DL (3.4-5.0); ALKALINE PHOSPHATASE 69 U/L (46-116); ASPARTATE AMINO TRANSFERASE 16 U/L (15-37); BILIRUBIN,TOTAL 0.3 MG/DL (0.2-1.0); CREATINE KINASE 106 U/L (26-308)
--- NOTE | 2018-08-29 07:10 | NUR ---
HAND-OFF: Report given to Christy/LAXMI, Pt is A/O X 4, VSS, Waiting for transfer.
[2018-08-29 07:30] VITALS: BP 112/76
--- NOTE | 2018-08-29 07:59 | NUR ---
ED Nurse Note: Report given to LAXMI Villa @ [facility] @ [phone].
[2018-08-29 08:00] VITALS: BP 113/75
--- NOTE | 2018-08-29 08:05 | NUR ---
ED Nurse Note: Patient is being transferred to [facility]. Patient awake, alert, oriented x 4. All his belongings given to ambulance personne. Removed IV access. Reports no pain.
--- NOTE | 2018-08-29 21:54 | Cardiology Report ---
APPROVED REPORT EKG Measurement Heart [id number] [id number] Normal sinus rhythm Early repolarization Incomplete RBBB Abnormal ECG
== END 2018-08-29 07:45 ==
LOC: EMR 02:41
DX: R45.851 Suicidal ideations (principal); F31.9 Bipolar disorder, unspecified; R44.0 Auditory hallucinations; F25.9 Schizoaffective disorder, unspecified
CPT/HCPCS: 36415; 80053; 80307; 80329; 81003; 82550; 85025; 93005; 96360; 99285

== ENCOUNTER 2018-09-29 02:20 | Emergency (ER) | payer OTHER ==
[~2018-09-29] VITALS: Ht 177.8 cm; Wt 72.6 kg
--- NOTE | 2018-09-29 02:33 | NUR ---
ED Nurse Note: Patient presents with complaints of auditory hallucinations, he is unable to make out what they are saying. Patient has no other complaints. Pt is AO x 4times, VSS, on room air no distress. ERMD seen Pt at bedside.
[2018-09-29 02:35] VITALS: BP 128/88
--- NOTE | 2018-09-29 02:49 | Emergency Room Report ---
History of Present Illness General Chief Complaint: Altered Mental Status Source: Patient, Medical Record Present Illness HPI This is a 42-year-old male with a history of schizophrenia. He is well-known to this ER with multiple visits for the same. He presents with chief complaint of hearing voices and feeling suicidal. He said he is compliant with his Zyprexa. He is compliant with his mental health follow-up. He denies any particular plan. Similar symptom in the past. No nausea no vomiting. No drug use. He usually has his complaint and come in at night to sleep here. In the morning he was say that he feels better and wants to go home. He usually stays in [place]. Allergies: Coded Allergies: No Known Allergies (Unverified , 07/20/18) Patient History Past Medical History: see triage record, old chart reviewed, schizophrenia Past Surgical History: other Family History: none Social History: single, lives alone Immunizations: other Reviewed Nursing Documentation: PMH: Agreed; PSxH: Agreed Nursing Documentation-PMH Hx Cardiac Problems: No History Of Psychiatric Problem: Yes - schizo-effective Review of Systems ENT: Denies: sore throat Cardiovascular: Denies: chest pain, palpitations Gastrointestinal/Abdominal: Denies: nausea, vomiting, diarrhea Musculoskeletal: Denies: back problems Skin: Denies: rash Neurological: Denies: NGUYEN, seizures All Other Systems: negative except mentioned in HPI Physical Exam Vital Signs Date Time Temp Pulse Resp B/P (MAP) Pulse Ox O2 Delivery O2 Flow Rate FiO2 09/29/18 02:26 97.9 73 19 118/85 (96) 95 Room Air vitals normal Sp02 EP Interpretation: reviewed, normal General Appearance: alert/responsive, no apparent distress, non-toxic Head: normocephalic, atraumatic Eyes: PERRL, EOMI ENT: oropharynx normal Neck: supple/symm/no masses Respiratory: effort normal, no rhonchi, no wheezing Cardiovascular: no murmur, gallop, rub Gastrointestinal: non-tender, no mass, non-distended, no rebound/guarding, normal bowel sounds Musculoskeletal: gait & station normal Neurologic: oriented x3, sensory intact, motor strength/tone normal Suicide Risk Assessment: Suicidal Ideation: Yes Had intent to initiate attempt: No Pt's plan for suicide attempt: No Has means to complete attempt: No Skin: no rash, normal palpation Medical Decision Making Diagnostic Impression: Primary Impression: Auditory hallucinations Additional Impression: Suicidal ideation ER Course Patient presents with auditory hallucination. He is calm. No evidence of acute psychosis that is from baseline. He is otherwise stable. He agreed that he was to sleep. Tonight and will leave in the morning. Last Vital Signs Date Time Temp Pulse Resp B/P (MAP) Pulse Ox O2 Delivery O2 Flow Rate FiO2 09/29/18 02:35 76 20 Room Air 09/29/18 02:35 97.7 128/88 98 Status: improved Disposition: HOME, SELF-CARE Condition: Stable Additional Instructions: Follow-up with your mental health as scheduled. Return if symptom worsen. Maurice Carranza MD September 29, 2018 02:49
[2018-09-29 04:30] VITALS: BP 124/74
[2018-09-29 05:40] VITALS: BP 130/76
[2018-09-29 05:41] VITALS: BP 130/76
--- NOTE | 2018-09-29 05:41 | NUR ---
Homeless Discharge: Patient is being discharged from medical care. Awake, alert and oriented x3. After care instructions, including referral to community resources were given. Patient verbalized understanding of After care instructions; at this time patient does not request medications, equipment or placement. Patient signed patient consent in the medical record for patient destination upon discharge. All medical devices such ID band were removed. Patient ambulated out with all personal belongings with steady gait.
== END 2018-09-29 05:43 | disposition home or self-care (01) ==
LOC: EMR 03:03
DX: R44.0 Auditory hallucinations (principal); R45.851 Suicidal ideations
CPT/HCPCS: 99282

== ENCOUNTER 2018-11-30 03:05 | Emergency (ER) | payer OTHER ==
[~2018-11-30] VITALS: Ht 177.8 cm; Wt 72.6 kg
[2018-11-30 03:18] VITALS: BP 124/82
--- NOTE | 2018-11-30 03:18 | NUR ---
ED Nurse Note: Pt walked in to ER. stating he has been hearing voices since 2013, but the voice is becoming overwhelming. Pt is alert x4, ambulatory. VSS
[2018-11-30] MEDS ORDERED: ZYPREXA10 MG ORAL (04:11)
[2018-11-30] MEDS ORDERED: PROZAC20 MG ORAL (04:11)
--- NOTE | 2018-11-30 04:12 | Emergency Room Report ---
History of Present Illness General Chief Complaint: Behavioral Complaint Source: Patient Present Illness HPI This a 43-year-old male with a history of schizophrenia/schizoaffective disorder. He usually take Zyprexa and Prozac. He said is been out of it for a few days. He has increasing auditory hallucination. No suicidal thoughts or homicidal thought. No plans. Similar symptom in the past. He is scheduled for follow-up with a mental health clinic in a week. Denies any other complaint. Allergies: Coded Allergies: No Known Allergies (Unverified , 07/20/18) Patient History Past Medical History: see triage record, old chart reviewed, schizophrenia Past Surgical History: none Family History: none Social History: other Immunizations: other Reviewed Nursing Documentation: PMH: Agreed; PSxH: Agreed Nursing Documentation-PMH Past Medical History: No History, Except For Hx Cardiac Problems: No History Of Psychiatric Problem: Yes Review of Systems ENT: Denies: sore throat Cardiovascular: Denies: chest pain, palpitations Gastrointestinal/Abdominal: Denies: nausea, vomiting, diarrhea Musculoskeletal: Denies: back problems Skin: Denies: rash Neurological: Denies: NGUYEN, seizures All Other Systems: negative except mentioned in HPI Physical Exam Vital Signs Date Time Temp Pulse Resp B/P (MAP) Pulse Ox O2 Delivery O2 Flow Rate FiO2 11/30/18 03:14 97.9 86 15 125/87 (100) 96 Room Air 11/30/18 03:18 98 Vitals normal Sp02 EP Interpretation: reviewed, normal General Appearance: alert/responsive, no apparent distress, non-toxic Head: normocephalic, atraumatic Eyes: PERRL, EOMI ENT: oropharynx normal Neck: supple/symm/no masses Respiratory: effort normal, no rhonchi, no wheezing Cardiovascular: no murmur, gallop, rub Gastrointestinal: non-tender, no mass, non-distended, no rebound/guarding, normal bowel sounds Musculoskeletal: gait & station normal Neurologic: oriented x3, sensory intact, motor strength/tone normal Skin: no rash, normal palpation Medical Decision Making Diagnostic Impression: Primary Impression: Auditory hallucinations ER Course Presents with increasing auditory hallucinations secondary to out of his medication. He is calm. This is his usual presentation. He just want a place to sleep until the morning and leave with a prescription for his refill on medication. There is no criteria for 5150. Last Vital Signs Date Time Temp Pulse Resp B/P (MAP) Pulse Ox O2 Delivery O2 Flow Rate FiO2 11/30/18 03:18 82 16 Room Air 98 11/30/18 03:18 97.9 124/82 98 Status: improved Disposition: HOME, SELF-CARE Condition: Stable Scripts Fluoxetine Hcl* (PROZAC*) 20 Mg Capsule 20 MG ORAL DAILY, #30 CAP Prov: Maurice Carranza MD 11/30/18 Olanzapine* (ZYPREXA*) 10 Mg Tablet 10 MG ORAL DAILY, #30 TAB 0 Refills Prov: Maurice Carranza MD 11/30/18 [facility]errals: [facility] ([facility]P) Additional Instructions: Follow-up with your doctor in 7 days. Return if symptoms worsen. Maurice Carranza MD Nov 30, 2018 04:12
[2018-11-30 05:28] VITALS: BP 130/80
--- NOTE | 2018-11-30 05:29 | NUR ---
ED Nurse Note: pt in bed , eyes closed. VSS. will continue to monitor.
[2018-11-30 06:30] VITALS: BP 133/84
--- NOTE | 2018-11-30 06:30 | NUR ---
ER DISCHARGE NOTE: Patient is cleared to be discharged per ERMD, pt is aox4, on room air, with stable vital signs. pt was given dc and prescription instructions, pt was able to verbalize understanding, pt id band removed without complications. pt is able to ambulate with steady gait. pt took all belongings and left via taxi with taxi voucher. meal was provided prior to departure.
[2018-11-30] MEDS ORDERED: OLANZapine 10mg tab ORAL SCH (09:00)
== END 2018-11-30 06:30 | disposition home or self-care (01) ==
LOC: EMR 04:02
DX: F25.9 Schizoaffective disorder, unspecified (principal); Z76.0 Encounter for issue of repeat prescription
CPT/HCPCS: 99282

== ENCOUNTER 2019-02-10 06:08 | Emergency (ER) | payer OTHER ==
[~2019-02-10] VITALS: Ht 177.8 cm; Wt 72.6 kg
--- NOTE | 2019-02-10 06:33 | Emergency Room Report ---
History of Present Illness General Chief Complaint: Behavioral Complaint Source: Patient Present Illness HPI 43-year-old male history of schizophrenia currently compliant with Zyprexa, presents with auditory hallucinations, he is currently not suicidal or homicidal , no plan to kill himself, did not take any medications prior to coming here, he states that the voices stating that something bad will happen however he states since coming to [place] he feels better and the voices have receded, severity is mild, symptoms started prior to arrival, patient has a recurrent history of coming to the ED and leaving. Allergies: Coded Allergies: No Known Allergies (Unverified , 07/20/18) Patient History Past Medical History: see triage record Social History: Reports: smoking Reviewed Nursing Documentation: PMH: Agreed; PSxH: Agreed Nursing Documentation-PMH Hx Cardiac Problems: No History Of Psychiatric Problem: Yes - schizoeffective disorder Review of Systems All Other Systems: negative except mentioned in HPI Physical Exam Vital Signs Date Time Temp Pulse Resp B/P (MAP) Pulse Ox O2 Delivery O2 Flow Rate FiO2 02/10/19 06:15 98.1 75 17 127/90 (102) 97 Room Air Sp02 EP Interpretation: reviewed, normal General Appearance: well appearing, no apparent distress, alert Head: normocephalic, atraumatic Eyes: bilateral eye PERRL, bilateral eye EOMI ENT: uvula midline, moist mucus membranes Neck: supple, thyroid normal, supple/symm/no masses Respiratory: lungs clear, no respiratory distress, no retraction, no accessory muscle use Cardiovascular #1: normal peripheral pulses, regular rate, rhythm, no edema, no gallop, no murmur Gastrointestinal: non tender, soft, no guarding, no rebound Musculoskeletal: normal inspection Neurologic: alert, oriented x3 Psychiatric: mood/affect normal, no suicidal/homicidal ideation Skin: no rash, warm/dry Medical Decision Making Diagnostic Impression: Primary Impression: Auditory hallucinations ER Course 43-year-old male presents with acute auditory hallucinations, acute on chronic, differential diagnosis includes schizophrenia, bipolar, other unspecified mental illness, patient is currently not suicidal or homicidal, patient was observed in the ED, with resolution of his symptoms, patient states he has a follow-up appointment with Dr. Zaman this week his psychiatrist, patient is currently compliant with his medications no indications for placing him on a hold additionally patient is known to come to the ED sleep for a little bit and leave later on after a couple of hours. Patient is also requesting food. Low suspicion for acute suicidality Laboratory Tests Test 02/10/19 06:30 Urine Opiates Screen Negative (NEGATIVE) Urine Barbiturates Screen Negative (NEGATIVE) Phencyclidine (PCP) Screen Negative (NEGATIVE) Urine Amphetamines Screen Negative (NEGATIVE) Urine Benzodiazepines Screen Negative (NEGATIVE) Urine Cocaine Screen Negative (NEGATIVE) Urine Marijuana (THC) Screen Negative (NEGATIVE) Last Vital Signs Date Time Temp Pulse Resp B/P (MAP) Pulse Ox O2 Delivery O2 Flow Rate FiO2 02/10/19 06:15 98.1 75 17 127/90 (102) 97 Room Air Disposition: HOME, SELF-CARE Condition: Stable Referrals: NON PHYSICIAN (PCP) [facility] Patient Instructions: Self-Destructive Behavior Additional Instructions: The patient was provided with discharge instructions, notified to follow-up with a primary care doctor and or specialist in the next 24-48 hours, and to return to the ED if they have worsening of their symptoms. Please note that this report is being documented using [employer] technology. This can lead to erroneous entry secondary to incorrect interpretation by the dictating instrument. Jhony Price MD Feb 10, 2019 06:33
[2019-02-10 06:34] VITALS: BP 127/90
--- NOTE | 2019-02-10 06:36 | NUR ---
ED Nurse Note: patient ambulated to ed with behavioura complaint. pt reports repetitive auditory hallucinations. denies command hallucinations, si or hi, or pain. pt is well groomed with appropriate responses. states coming to the hospital is 'therapeutic'. patient is resting in bed with no signs of acute distress. provided patient with nourishment and blankets. collected urine sample; sent down to lab.
[2019-02-10 07:20] VITALS: BP 127/90
--- NOTE | 2019-02-10 07:21 | NUR ---
ER DISCHARGE NOTE: Patient is cleared to be discharged per ERMD, pt is aox4, on room air, with stable vital signs. patient states he wants to go home. denies being homeless. he says the voices have lessened and are managable. pt was given dc instructions, pt was able to verbalize understanding, pt id band removed. pt is able to ambulate with steady gait. pt took all belongings.
== END 2019-02-10 07:20 | disposition home or self-care (01) ==
LOC: EMR 06:19
DX: F25.9 Schizoaffective disorder, unspecified (principal); F17.200 Nicotine dependence, unspecified, uncomplicated
CPT/HCPCS: 80307; Z7502; 99282

== ENCOUNTER 2019-06-06 04:44 | Emergency (ER) | payer OTHER ==
[~2019-06-06] VITALS: Ht 177.8 cm; Wt 72.6 kg
[2019-06-06 04:55] VITALS: BP 123/83
--- NOTE | 2019-06-06 04:55 | NUR ---
ED Nurse Note: Patient walked into ED from home d/t auditory hallucinations worsening today. Patient aao x 4 and ambulatory. No complaints of pain. Patient states he has schizoaffective disorder. Patient states voices are usually there but not as bad as they are today. Denies HI/SI, voices are non-threatening per patient. No acute distress noted.
--- NOTE | 2019-06-06 04:56 | NUR ---
ED Nurse Note: ERMD with patient.
--- NOTE | 2019-06-06 05:04 | Emergency Room Report ---
History of Present Illness General Chief Complaint: Behavioral Complaint Source: Patient (Miller Medina MD) Present Illness HPI Disclaimer: Please note that this report is being documented using [employer] technology. This can lead to erroneous entry secondary to incorrect interpretation by the dictating instrument. HPI: 43-year-old male with history of schizophrenia and schizoaffective disorder presents for evaluation of increased auditory hallucinations. The patient hears auditory hallucinations at his baseline however states they are more intense. States they have been arguing with each other but are not telling him to do anything in particular. He denies any suicidal ideation or homicidal ideation. He has been compliant with his Zyprexa last dose taken approximately 8 hours ago. He is due to take his Prozac in the morning. He follows with Dr. Zaman in [place] and saw her last week. No changes in medications were made. He otherwise denies any changes in his health or pain at this time. He would like to speak with a psychiatrist or counselor if available. He denies any drug or alcohol use PMH: Schizophrenia, schizoaffective disorder PSH: Reviewed Allergies: Denies Social Hx: Denies drug or alcohol use (Miller Medina MD) Allergies: Coded Allergies: No Known Allergies (Unverified , 07/20/18) Nursing Documentation-PM Past Medical History: No History, Except For Hx Cardiac Problems: No History Of Psychiatric Problem: Yes (Miller Medina MD) Review of Systems All Other Systems: negative except mentioned in HPI (Miller Medina MD) Physical Exam Vital Signs Date Time Temp Pulse Resp B/P (MAP) Pulse Ox O2 Delivery O2 Flow Rate FiO2 06/06/19 04:53 98.2 77 14 123/83 (96) 98 Room Air General: Awake and alert, no acute distress HEENT: NC/AT. EOMI. Resp: Normal work of breathing Skin: Intact. No abrasions, laceration or rash over the exposed skin MSK: Normal tone and bulk. Moving all extremities. No obvious deformity. Neuro: Awake and alert. Mentating appropriately, calm, pleasant, well kempt. Answering questions appropriately. Denies SI/HI. Does not appear to be responding to internal stimuli (Miller Medina MD) Medical Decision Making Diagnostic Impression: Primary Impression: Auditory hallucinations ER Course This a 43-year-old male presenting for evaluation of increasing auditory hallucinations. Patient has multiple emergency department visits for similar presentation. He is compliant with his Zyprexa and follows regularly with Dr. Zaman, his psychiatrist, in [place]. He denies any other changes in his health. He would like to speak with our psychiatrist if possible and if not to be transferred for evaluation by mental health professional. He is willing to wait until the morning to see if we can arrange for him to see a counselor. Will allow to rest and sleep and eat something to eat. Will reevaluate in the morning after discussion with psychiatry (Miller Medina MD) ER Course Patient was observed in the emergency department. He was noted to be sleeping throughout the night. He was noted to have thank you prior chronic history of psychiatric disease and currently denies any suicidal thoughts or hallucinations. He states he feels capable of taking care of himself. He states that he has a place to live and will follow-up with a psychiatrist. Patient does not appear to be holdable and appears capable of self-care. Patient will be discharged home. He was advised to follow-up with a psychiatrist and to return if he felt worse. (Minor Minor MD) Last Vital Signs Date Time Temp Pulse Resp B/P (MAP) Pulse Ox O2 Delivery O2 Flow Rate FiO2 06/06/19 04:53 98.2 77 14 123/83 (96) 98 Room Air (Miller Medina MD) Status: improved (Minor Minor MD) Disposition: HOME, SELF-CARE Condition: Stable Miller Medina MD Jun 06, 2019 05:03 Minor Minor MD Jun 06, 2019 09:40
--- NOTE | 2019-06-06 06:55 | NUR ---
HAND-OFF: Report given to Mark Howard RN.
--- NOTE | 2019-06-06 07:00 | NUR ---
ED Nurse Note: RECEIVED REPORT FROM SHY [facility]IR
[2019-06-06 07:46] VITALS: BP 125/73
--- NOTE | 2019-06-06 07:47 | NUR ---
ED Nurse Note: PATIENT IS CALM AND SLEEPING. NAD, VSS. WILL CONTINUE TO MONITOR PATIENT.
--- NOTE | 2019-06-06 09:37 | NUR ---
ED Nurse Note: patient wishes to be dc, stating he does not want to be seen by a psychiatrist. pt denies harm to self or others. ermd at bedside.
[2019-06-06 09:50] VITALS: BP 133/76
--- NOTE | 2019-06-06 09:50 | NUR ---
ER DISCHARGE NOTE: Patient is cleared to be discharged per ERMD, pt is aox4, on room air, with stable vital signs. pt was given dc instructions, pt was able to verbalize understanding, pt id band removed without complications. pt is able to ambulate with steady gait. pt took all belongings.
== END 2019-06-06 09:50 | disposition home or self-care (01) ==
LOC: EMR 05:01
DX: R44.0 Auditory hallucinations (principal); F25.9 Schizoaffective disorder, unspecified
CPT/HCPCS: 99282

== ENCOUNTER 2019-08-07 05:20 | Emergency (ER) | payer OTHER ==
[~2019-08-07] VITALS: Ht 177.8 cm; Wt 72.6 kg
[2019-08-07 05:25] VITALS: BP 134/81
--- NOTE | 2019-08-07 05:25 | NUR ---
ED Nurse Note: Patient walked into ED c/o general complaint, states that he is hearing voices. complains of no pain is ambulatory with a steady gait. patient does have a history of schizophrenia, states that he has not taken his medications for the past 12 years, denies any other problems. patient is not suicidal or homicidal, has no plans to hurt himself or hurt others. will wait for further orders
[2019-08-07 05:35] VITALS: BP 125/76
--- NOTE | 2019-08-07 05:35 | NUR ---
ER DISCHARGE NOTE: Patient is cleared to be discharged per ERMD, pt is aox4, on room air, with stable vital signs. pt was given dc and prescription instructions, pt was able to verbalize understanding, pt id band removed. pt is able to ambulate with steady gait. pt took all belongings.
[2019-08-07] MEDS ORDERED: ZYPREXA10 MG ORAL (05:37)
--- NOTE | 2019-08-07 05:37 | Emergency Room Report ---
History of Present Illness General Chief Complaint: General Complaint Source: Patient Present Illness HPI This is a 43-year-old male with history of schizophrenia. He presents with chief complaint of auditory hallucination. This is a chronic issue but worse in the last few days. He said the voices tell him to hurt himself but no particular plan. No fever chills but no nausea no vomiting. Similar symptom in the past. Not taking his medication. Denies any other complaint. Allergies: Coded Allergies: No Known Allergies (Unverified , 07/20/18) Patient History Past Medical History: see triage record, old chart reviewed, schizophrenia Past Surgical History: none Family History: none Social History: other Immunizations: other Reviewed Nursing Documentation: PMH: Agreed; PSxH: Agreed Nursing Documentation-PMH Hx Cardiac Problems: No Review of Systems ENT: Denies: sore throat Cardiovascular: Denies: chest pain, palpitations Gastrointestinal/Abdominal: Denies: nausea, vomiting, diarrhea Musculoskeletal: Denies: back problems Skin: Denies: rash Neurological: Denies: NGUYEN, seizures All Other Systems: negative except mentioned in HPI Physical Exam Vital Signs Date Time Temp Pulse Resp B/P (MAP) Pulse Ox O2 Delivery O2 Flow Rate FiO2 08/07/19 05:23 98.1 87 18 134/81 (98) 95 Room Air Vitals normal Sp02 EP Interpretation: reviewed, normal General Appearance: alert/responsive, no apparent distress, non-toxic Head: normocephalic, atraumatic Eyes: PERRL, EOMI ENT: oropharynx normal Neck: supple/symm/no masses Respiratory: effort normal, no rhonchi, no wheezing Cardiovascular: no murmur, gallop, rub Gastrointestinal: non-tender, no mass, non-distended, no rebound/guarding, normal bowel sounds Musculoskeletal: gait & station normal Neurologic: oriented x3, sensory intact, motor strength/tone normal Suicide Risk Assessment: Suicidal Ideation: Yes Had intent to initiate attempt: No Pt's plan for suicide attempt: No Has means to complete attempt: No Skin: no rash, normal palpation Medical Decision Making Diagnostic Impression: Primary Impression: Auditory hallucinations ER Course Patient with auditory elucidation. He has no particular complaints. This is chronic in nature. He is stable otherwise. No criteria for 5150. Will discharge home. Last Vital Signs Date Time Temp Pulse Resp B/P (MAP) Pulse Ox O2 Delivery O2 Flow Rate FiO2 08/07/19 05:23 98.1 87 18 134/81 (98) 95 Room Air Status: improved Disposition: HOME, SELF-CARE Condition: Stable Scripts Olanzapine* (ZYPREXA*) 10 Mg Tablet 10 MG ORAL DAILY, #30 TAB 0 Refills Prov: Maurice Carranza MD 08/07/19 Referrals: [facility],REFERRING (PCP) Additional Instructions: Follow-up with mental health in 7 days. Return if symptoms worsen. Maurice Carranza MD Aug 07, 2019 05:37
== END 2019-08-07 05:35 | disposition home or self-care (01) ==
LOC: EMR 05:32
DX: R44.0 Auditory hallucinations (principal); F20.9 Schizophrenia, unspecified
CPT/HCPCS: 99282